=== PATIENT | male | born 1950 | race Caucasian/White ===

== ENCOUNTER 2017-09-26 21:56 | Emergency (ER) | payer MEDICARE ==
[~2017-09-26 21:56] MED LIST: ALPR0.255 PO; AMLO5TAB2 PO; ASPI-555 PO; ATOR20TA65 PO; CLON0.1T PO; CLOP75TA32 PO; FURO40TA7 PO; HYDR-4153 PO; LACT10SO PO; LOSA100T29 PO; METO200T49 PO; PANT40TA25 PO; POTA-81 PO
[2017-09-26 22:19] LABS: BASOPHILS % (AUTO) 0.8 % (0.0-5.0); EOSINOPHILS % (AUTO) 3.1 % (0.0-8.0); HEMATOCRIT 34.7 % (42-54); LYMPHOCYTES % (AUTO) 20.6 % (21.0-51.0); MEAN CORPUSCULAR HEMOGLOBIN 30.1 pg (27.0-33.0); MEAN CORPUSCULAR HGB CONC 34.7 g/dL (32.0-36.0); MEAN CORPUSCULAR VOLUME 86.5 fL (79-99); MONOCYTES % (AUTO) 10.9 % (3.0-13.0); NEUTROPHILS % (AUTO) 64.6 % (40.0-77.0); PLATELET COUNT (AUTO) 229 K/uL (130-400); RED CELL DISTRIBUTION WIDTH 13.2 % (11.0-15.5); WHITE BLOOD COUNT (AUTO) 9.6 K/uL (4.8-10.8)
[2017-09-26] MEDS ORDERED: ASPIRIN 325 MG TABLET ONE (22:30)
[2017-09-26 22:31] LABS: CREATININE 1.5 mg/dL (0.5-1.5); POTASSIUM 3.7 mmol/L (3.5-5.1)
[2017-09-26 22:36] LABS: ALBUMIN 3.7 g/dL (3.5-5.0); BILIRUBIN,TOTAL 0.4 mg/dL (0.2-1.0); TOTAL PROTEIN, SERUM 7.1 g/dL (6.0-8.3)
[2017-09-26] MEDS ORDERED: NITROGLYCERIN 1GM/1 INCH PACKET TD ONE (23:11)
[2017-09-26] MEDS ORDERED: CLONIDINE HCL 0.1 MG TABLET ONE (23:52)
[2017-09-26] MEDS ORDERED: FUROSEMIDE 10 MG/ML 4ML VIAL ONE (23:53)
== END 2017-09-27 00:32 | disposition home or self-care (01) ==
LOC: EDH 21:56
DX: R07.89 Other chest pain (principal); I11.0 Hypertensive heart disease with heart failure; I50.41 Acute combined systolic (congestive) and diastolic (congestive) heart failure; I25.10 Atherosclerotic heart disease of native coronary artery without angina pectoris; E78.5 Hyperlipidemia, unspecified; Z79.899 Other long term (current) drug therapy; Z87.891 Personal history of nicotine dependence
CPT/HCPCS: 36415; 71045; 80053; 82550; 82553; 83880; 84484 ×2; 85025; 93005 ×2; 96374; 99285; J1940

== ENCOUNTER 2018-01-26 03:01 | Inpatient (IN) | payer MEDICARE ==
[~2018-01-26] VITALS: Ht 182.9 cm; Wt 97.6 kg
[~2018-01-26 03:01] MED LIST changes: -AMLO5TAB2 PO; +AMLO5TAB7 PO; +LOSA100T20 PO; -LOSA100T29 PO
[2018-01-26] MEDS ORDERED: METOPROLOL TARTRATE 1 MG/ML 5ML VIAL IV ONE (03:05)
[2018-01-26] MEDS ORDERED: ASPIRIN 325 MG TABLET ONE (03:19)
[2018-01-26 03:25] LABS: POTASSIUM 3.9 mmol/L (3.5-5.1)
[2018-01-26 03:26] LABS: BASOPHILS % (AUTO) 0.9 % (0.0-5.0); EOSINOPHILS % (AUTO) 3.5 % (0.0-8.0); HEMATOCRIT 39.8 % (42-54); LYMPHOCYTES % (AUTO) 27.9 % (21.0-51.0); MEAN CORPUSCULAR HEMOGLOBIN 30.8 pg (27.0-33.0); MEAN CORPUSCULAR HGB CONC 34.6 g/dL (32.0-36.0); MEAN CORPUSCULAR VOLUME 89.1 fL (79-99); MONOCYTES % (AUTO) 9.8 % (3.0-13.0); NEUTROPHILS % (AUTO) 57.9 % (40.0-77.0); NUCLEATED RED BLOOD CELLS 0.1 % (0.0-0.19); PLATELET COUNT (AUTO) 204 K/uL (130-400); RED BLOOD CELL COUNT(AUTO) 4.47 MIL/uL (4.50-6.20); RED CELL DISTRIBUTION WIDTH 13.7 % (11.0-15.5); WHITE BLOOD COUNT (AUTO) 10.3 K/uL (4.8-10.8)
[2018-01-26 03:29] LABS: INR 0.95 (0.85-1.15); PARTIAL THROMBOPLASTIN TIME 27.5 SEC (26.3-35.5)
[2018-01-26 03:36] LABS: ALBUMIN 3.6 g/dL (3.5-5.0); BILIRUBIN,TOTAL 0.4 mg/dL (0.2-1.0); TOTAL PROTEIN, SERUM 7.2 g/dL (6.0-8.3)
[2018-01-26 04:28] VITALS: BP 128/76
[2018-01-26] MEDS ORDERED: OLME40TA18 PO (05:42)
[2018-01-26 07:24] VITALS: BP 150/88
[2018-01-26] MEDS: ENOXAPARIN SODIUM 100 MG/1 ML SQ SCH (08:14)
[2018-01-26] MEDS: PANTOPRAZOLE SODIUM 40 MG TABLET.DR PO SCH (08:14)
[2018-01-26] MEDS ORDERED: HYDR-4154 PO (08:42)
[2018-01-26] MEDS ORDERED: METOPROLOL TARTRATE 50 MG TAB PO SCH (09:00)
[2018-01-26] MEDS ORDERED: ASPIRIN 325MG EC TAB 325 MG TABLET.DR PO SCH (09:00)
[2018-01-26 09:42] LABS: CHOLESTEROL 184 mg/dL (<200); CREATINE KINASE, TOTAL 68 U/L (21-232); HDL CHOLESTEROL 34 mg/dL (29-71); LDL DIRECT 105 mg/dL (0-99); MYOGLOBIN 87 ng/mL (10-92); TRIGLYCERIDES 288 mg/dL (30-200)
[2018-01-26 11:19] VITALS: BP 149/75
[2018-01-26 16:10] VITALS: BP 165/86
[2018-01-26 19:57] VITALS: BP 184/90
[2018-01-26] MEDS ORDERED: CLONIDINE HCL 0.1 MG TABLET PO PRN (20:00)
[2018-01-26] MEDS: METOPROLOL TARTRATE 50 MG TAB PO SCH (20:05)
[2018-01-27] VITALS: BP 138/74
[2018-01-27 04:15] LABS: BASOPHILS % (AUTO) 0.8 % (0.0-5.0); EOSINOPHILS % (AUTO) 4.4 % (0.0-8.0); HEMATOCRIT 33.4 % (42-54); LYMPHOCYTES % (AUTO) 28.1 % (21.0-51.0); MEAN CORPUSCULAR HEMOGLOBIN 31.1 pg (27.0-33.0); MEAN CORPUSCULAR HGB CONC 34.9 g/dL (32.0-36.0); MEAN CORPUSCULAR VOLUME 89.2 fL (79-99); NEUTROPHILS % (AUTO) 55.7 % (40.0-77.0); PLATELET COUNT (AUTO) 183 K/uL (130-400); RED BLOOD CELL COUNT(AUTO) 3.74 MIL/uL (4.50-6.20); RED CELL DISTRIBUTION WIDTH 13.9 % (11.0-15.5)
[2018-01-27 04:25] VITALS: BP 137/70
[2018-01-27 04:40] LABS: ALBUMIN 2.9 g/dL (3.5-5.0); BILIRUBIN,TOTAL 0.3 mg/dL (0.2-1.0); POTASSIUM 4.3 mmol/L (3.5-5.1); TOTAL PROTEIN, SERUM 6.1 g/dL (6.0-8.3)
[2018-01-27] MEDS: PANTOPRAZOLE SODIUM 40 MG TABLET.DR PO SCH (07:18)
[2018-01-27] MEDS: METOPROLOL TARTRATE 50 MG TAB PO SCH (07:19)
[2018-01-27] MEDS: ENOXAPARIN SODIUM 100 MG/1 ML SQ SCH (07:19)
[2018-01-27] MEDS ORDERED: RIVA15TA PO (07:37)
[2018-01-27] MEDS ORDERED: FURO20TA4 PO (07:37)
[2018-01-27 07:44] VITALS: BP 177/97
[2018-01-27] MEDS ORDERED: AMLODIPINE BESYLATE 5 MG TAB PO SCH (09:00)
[2018-01-27] MEDS ORDERED: ASPIRIN 81MG TAB.CHEW PO SCH (09:00)
[2018-01-27] MEDS ORDERED: ASPIRIN 325MG EC TAB 325 MG TABLET.DR PO SCH (09:00)
== END 2018-01-27 10:50 | disposition home or self-care (01) | DRG 309 ==
LOC: EDH 03:01 → EDHIP 03:24 → 2AH 04:11
PROVIDERS: ADMIT Hospitalist; ATTEND Hospitalist
DX: I48.0 Paroxysmal atrial fibrillation (principal); E46 Unspecified protein-calorie malnutrition; N18.4 Chronic kidney disease, stage 4 (severe); I12.9 Hypertensive chronic kidney disease with stage 1 through stage 4 chronic kidney disease, or unspecified chronic kidney disease; E78.5 Hyperlipidemia, unspecified; E78.1 Pure hyperglyceridemia; I95.9 Hypotension, unspecified; I25.10 Atherosclerotic heart disease of native coronary artery without angina pectoris; I73.9 Peripheral vascular disease, unspecified; K21.9 Gastro-esophageal reflux disease without esophagitis; Z68.29 Body mass index [BMI] 29.0-29.9, adult; Z79.82 Long term (current) use of aspirin; Z79.899 Other long term (current) drug therapy; Z83.3 Family history of diabetes mellitus; Z82.49 Family history of ischemic heart disease and other diseases of the circulatory system; Z80.42 Family history of malignant neoplasm of prostate
CPT/HCPCS: 36415; 71045; 80053; 80061; 82550; 83874; 84484; 85025; 85610; 85730; 93005; 99291; J1650; J3490

== ENCOUNTER 2018-03-28 14:55 | Observation (INO) | payer MEDICARE ==
[~2018-03-28] VITALS: Ht 172.7 cm; Wt 98.9 kg
[~2018-03-28 14:55] MED LIST changes: -CLOP75TA32 PO; +FURO20TA4 PO; -FURO40TA7 PO; -HYDR-4153 PO; -LOSA100T20 PO; +RIVA15TA PO
[2018-03-28 15:47] LABS: BASOPHILS % (AUTO) 1.4 % (0.0-5.0); EOSINOPHILS % (AUTO) 3.3 % (0.0-8.0); HEMATOCRIT 39.9 % (42-54); LYMPHOCYTES % (AUTO) 18.4 % (21.0-51.0); MEAN CORPUSCULAR HEMOGLOBIN 30.2 pg (27.0-33.0); MEAN CORPUSCULAR HGB CONC 33.5 g/dL (32.0-36.0); MEAN CORPUSCULAR VOLUME 90.2 fL (79-99); MONOCYTES % (AUTO) 8.3 % (3.0-13.0); NEUTROPHILS % (AUTO) 68.6 % (40.0-77.0); PLATELET COUNT (AUTO) 223 K/uL (130-400); RED BLOOD CELL COUNT(AUTO) 4.42 MIL/uL (4.50-6.20); RED CELL DISTRIBUTION WIDTH 13.7 % (11.0-15.5); WHITE BLOOD COUNT (AUTO) 8.7 K/uL (4.8-10.8)
[2018-03-28 16:00] LABS: CREATININE 1.9 mg/dL (0.5-1.5); POTASSIUM 4.4 mmol/L (3.5-5.1)
[2018-03-28 16:02] LABS: ALBUMIN 3.1 g/dL (3.5-5.0); BILIRUBIN,TOTAL 0.5 mg/dL (0.2-1.0); INR 1.17 (0.85-1.15); PARTIAL THROMBOPLASTIN TIME 40.7 SEC (26.3-35.5); PROTHROMBIN TIME 12.2 SEC (9.6-11.6); TOTAL PROTEIN, SERUM 6.7 g/dL (6.0-8.3)
[2018-03-28 16:09] LABS: APPEARANCE,URINE Clear (CLEAR); BILIRUBIN,URINE Negative (NEGATIVE); COLOR,URINE Yellow (YELLOW); GLUCOSE, URINE (UA) Negative (NEGATIVE); KETONES,URINE Negative (NEGATIVE); LEUKOCYTE ESTERASE ,URINE Negative (NEGATIVE); NITRATE,URINE Negative (NEGATIVE); OCCULT BLOOD,URINE Negative (NEGATIVE); PH,URINE 5.5 (5.0-8.0); PROTEIN,URINE POS 2+ (NEGATIVE); UROBILINOGEN,URINE 0.2 mg/dL (0.2-1.0)
[2018-03-28 16:14] LABS: B-TYPE NATRIURETIC PEPTIDE 972 pg/mL (0-100)
[2018-03-28] MEDS ORDERED: NITROGLYCERIN 1GM/1 INCH PACKET TD ONE (16:42)
[2018-03-28] MEDS ORDERED: FUROSEMIDE 10 MG/ML 4ML VIAL ONE (16:42)
[2018-03-28 17:54] LABS: BACTERIA,URINE Rare /HPF (None Seen); RBC,URINE 0-1 /HPF (0-1); SQUAMOUS EPITHELIAL CELL,UR Rare /HPF (0-2); WBC,URINE 0-1 /HPF (0-1)
[2018-03-28] MEDS ORDERED: ACETAMINOPHEN 325 MG TAB PO PRN (18:45)
[2018-03-28] MEDS ORDERED: AZITHROMYCIN 500MG+NS 250ML 250 ML IV SCH (18:45)
[2018-03-28] MEDS ORDERED: CEFTRIAXONE SODIUM 1 GM IV SCH (18:45)
[2018-03-28] MEDS: NITROGLYCERIN 1GM/1 INCH PACKET TD SCH (18:45)
[2018-03-28] MEDS ORDERED: ALBUTEROL SULFATE 0.083% 2.5 MG/3 ML INH IH PRN (18:45)
[2018-03-28] MEDS ORDERED: CLONIDINE HCL 0.1 MG TABLET PO PRN (19:00)
[2018-03-28] MEDS ORDERED: LACTULOSE 20 GM/30 ML UDCUP PO PRN (19:30)
[2018-03-28] MEDS ORDERED: CEFTRIAXONE SODIUM 1 GM ONE (19:57)
[2018-03-28] MEDS ORDERED: METOPROLOL TARTRATE 25 MG TAB ONE (19:57)
[2018-03-28] MEDS ORDERED: CLONIDINE HCL 0.1 MG TABLET ONE (19:57)
[2018-03-28] MEDS: FUROSEMIDE 10 MG/ML 4ML VIAL IVP SCH (21:00)
[2018-03-28] MEDS ORDERED: METOPROLOL TARTRATE 25 MG TAB PO SCH (21:00)
[2018-03-28 21:26] VITALS: BP 166/75
[2018-03-28] MEDS: ALPRAZOLAM 0.25 MG TABLET PO SCH (21:53)
[2018-03-28] MEDS: FAMOTIDINE/PF 20 MG/2 ML VIAL IV SCH (21:53)
[2018-03-29] VITALS: BP_SYST 132; BP_SYST 88; BP_DIAS 37; BP_DIAS 95
[2018-03-29 04:00] VITALS: BP 151/73
[2018-03-29] MEDS: NITROGLYCERIN 1GM/1 INCH PACKET TD SCH ×2 (05:41→14:36)
[2018-03-29 07:00] VITALS: BP 162/70
[2018-03-29] MEDS: ALPRAZOLAM 0.25 MG TABLET PO SCH ×2 (08:40→14:35)
[2018-03-29] MEDS: FAMOTIDINE/PF 20 MG/2 ML VIAL IV SCH (08:41)
[2018-03-29] MEDS: FUROSEMIDE 10 MG/ML 4ML VIAL IVP SCH (08:42)
[2018-03-29] MEDS ORDERED: RIVAROXABAN 15 MG TABLET PO SCH (09:00)
[2018-03-29] MEDS ORDERED: ENOXAPARIN SODIUM 30 MG/0.3 ML SQ SCH (09:00)
[2018-03-29] MEDS ORDERED: ASPIRIN 81MG TAB.CHEW PO SCH (09:00)
[2018-03-29] MEDS ORDERED: METOPROLOL TARTRATE 50 MG TAB PO SCH (09:00)
[2018-03-29] MEDS ORDERED: ATORVASTATIN CALCIUM 20 MG TABLET PO SCH (09:00)
[2018-03-29] MEDS ORDERED: POTASSIUM CHLORIDE 20 MEQ ERTAB PO SCH (09:00)
[2018-03-29 11:00] VITALS: BP 119/62
[2018-03-29 12:15] LABS: HEMATOCRIT 39.9 % (42-54); MEAN CORPUSCULAR HEMOGLOBIN 30.7 pg (27.0-33.0); MEAN CORPUSCULAR HGB CONC 33.9 g/dL (32.0-36.0); MEAN CORPUSCULAR VOLUME 90.6 fL (79-99); PLATELET COUNT (AUTO) 237 K/uL (130-400); RED BLOOD CELL COUNT(AUTO) 4.41 MIL/uL (4.50-6.20); RED CELL DISTRIBUTION WIDTH 13.2 % (11.0-15.5); WHITE BLOOD COUNT (AUTO) 7.1 K/uL (4.8-10.8)
[2018-03-29 12:37] LABS: ALBUMIN 2.9 g/dL (3.5-5.0); BILIRUBIN,TOTAL 0.4 mg/dL (0.2-1.0); CREATININE 2.2 mg/dL (0.5-1.5); POTASSIUM 4.2 mmol/L (3.5-5.1); TOTAL PROTEIN, SERUM 6.6 g/dL (6.0-8.3)
== END 2018-03-29 17:36 | disposition home or self-care (01) ==
LOC: EDH 14:55 → EDHIP 18:25 → 3CH 20:44
PROVIDERS: ADMIT Hospitalist; ATTEND Hospitalist
DX: I11.0 Hypertensive heart disease with heart failure (principal); R91.8 Other nonspecific abnormal finding of lung field; M79.671 Pain in right foot; E78.5 Hyperlipidemia, unspecified; I25.10 Atherosclerotic heart disease of native coronary artery without angina pectoris; I65.29 Occlusion and stenosis of unspecified carotid artery; I48.0 Paroxysmal atrial fibrillation; F41.9 Anxiety disorder, unspecified; I50.33 Acute on chronic diastolic (congestive) heart failure; I73.9 Peripheral vascular disease, unspecified; K21.9 Gastro-esophageal reflux disease without esophagitis; N28.9 Disorder of kidney and ureter, unspecified; Z16.24 Resistance to multiple antibiotics; Z80.42 Family history of malignant neoplasm of prostate; Z82.49 Family history of ischemic heart disease and other diseases of the circulatory system; Z83.3 Family history of diabetes mellitus; Z87.891 Personal history of nicotine dependence; Z95.5 Presence of coronary angioplasty implant and graft; Z79.01 Long term (current) use of anticoagulants
CPT/HCPCS: 36415 ×2; 71045; 80053 ×2; 81001; 82550; 83880 ×2; 84484 ×2; 85025; 85027; 85610; 85730; 93005; 93970; 94664; 96365; 96375 ×2; 96376; 99284; G0378 ×23; J0456; J0696; J1940 ×2; J3490 ×2

== ENCOUNTER 2018-07-24 23:36 | Emergency (ER) | payer MEDICARE ==
[~2018-07-24 23:36] MED LIST changes: -AMLO5TAB7 PO; +AMLO5TAB9 PO
[2018-07-25] MEDS ORDERED: SODIUM CHLORIDE 0.9% 100 ML IV ONE (00:19)
[2018-07-25] MEDS ORDERED: FUROSEMIDE 10 MG/ML 4ML VIAL ONE (00:19)
[2018-07-25 00:51] LABS: BASOPHILS % (AUTO) 0.8 % (0.0-5.0); EOSINOPHILS % (AUTO) 4.5 % (0.0-8.0); HEMATOCRIT 37.1 % (42-54); LYMPHOCYTES % (AUTO) 19.5 % (21.0-51.0); MEAN CORPUSCULAR HEMOGLOBIN 29.5 pg (27.0-33.0); MEAN CORPUSCULAR HGB CONC 33.5 g/dL (32.0-36.0); MEAN CORPUSCULAR VOLUME 87.9 fL (79-99); NEUTROPHILS % (AUTO) 67.2 % (40.0-77.0); PLATELET COUNT (AUTO) 226 K/uL (130-400); RED BLOOD CELL COUNT(AUTO) 4.22 MIL/uL (4.50-6.20); RED CELL DISTRIBUTION WIDTH 14.7 % (11.0-15.5); WHITE BLOOD COUNT (AUTO) 9.8 K/uL (4.8-10.8)
[2018-07-25 00:54] LABS: APPEARANCE,URINE Clear (CLEAR); BILIRUBIN,URINE Negative (NEGATIVE); COLOR,URINE Yellow (YELLOW); GLUCOSE, URINE (UA) Negative (NEGATIVE); KETONES,URINE Negative (NEGATIVE); LEUKOCYTE ESTERASE ,URINE Negative (NEGATIVE); NITRATE,URINE Negative (NEGATIVE); OCCULT BLOOD,URINE Negative (NEGATIVE); PH,URINE 6.5 (5.0-8.0); PROTEIN,URINE POS 2+ mg/dL (NEGATIVE); UROBILINOGEN,URINE 0.2 mg/dL (0.2-1.0)
[2018-07-25 01:04] LABS: POTASSIUM 4.2 mmol/L (3.5-5.1)
[2018-07-25 01:07] LABS: INR 1.07 (0.85-1.15); PROTHROMBIN TIME 11.2 SEC (9.6-11.6)
[2018-07-25 01:09] LABS: ALBUMIN 3.4 g/dL (3.5-5.0); B-TYPE NATRIURETIC PEPTIDE 460 pg/mL (0-100); BILIRUBIN,TOTAL 0.5 mg/dL (0.2-1.0)
== END 2018-07-25 03:44 | disposition home or self-care (01) ==
LOC: EDH 23:36
DX: R60.0 Localized edema (principal); I13.0 Hypertensive heart and chronic kidney disease with heart failure and stage 1 through stage 4 chronic kidney disease, or unspecified chronic kidney disease; I50.9 Heart failure, unspecified; N18.9 Chronic kidney disease, unspecified; I25.10 Atherosclerotic heart disease of native coronary artery without angina pectoris; Z98.890 Other specified postprocedural states; Z87.891 Personal history of nicotine dependence
CPT/HCPCS: 36415; 71045; 80053; 81003; 82550; 83880; 84484; 85025; 85610; 85730; 93005; 96374; 99284; J1940

== ENCOUNTER 2018-11-23 06:05 | Day surgery (SDC) | payer MEDICARE ==
[2018-11-23 06:22] VITALS: BP 198/111
[2018-11-23] MEDS ORDERED: SODIUM CHLORIDE 0.9% 1000ML 1,000 ML IV ONE (06:55)
[2018-11-23] MEDS ORDERED: IOHEXOL-350 75 ML VIAL IV ONE (10:24)
[2018-11-23 11:02] VITALS: BP 159/73
[2018-12-02] MEDS ORDERED: HYDR100T27 PO (08:36)
[2018-12-02] MEDS ORDERED: OLME40TA18 PO (08:36)
[2018-12-02] MEDS ORDERED: CLOP75TA32 PO (08:36)
== END 2018-11-23 11:08 | disposition home or self-care (01) ==
LOC: DAH 06:05 → EDSTATUS 08:00 → DAH 11:08
PROVIDERS: ATTEND Internal Medicine Cardiovascular Disease
DX: I65.23 Occlusion and stenosis of bilateral carotid arteries (principal); I25.10 Atherosclerotic heart disease of native coronary artery without angina pectoris; I13.0 Hypertensive heart and chronic kidney disease with heart failure and stage 1 through stage 4 chronic kidney disease, or unspecified chronic kidney disease; N18.3 Chronic kidney disease, stage 3 (moderate); I50.32 Chronic diastolic (congestive) heart failure; E78.5 Hyperlipidemia, unspecified; I48.0 Paroxysmal atrial fibrillation; K21.9 Gastro-esophageal reflux disease without esophagitis; Z87.891 Personal history of nicotine dependence; Z79.01 Long term (current) use of anticoagulants; Z79.899 Other long term (current) drug therapy; Z98.61 Coronary angioplasty status
CPT/HCPCS: 70496; 70498; 96365; 96366; A4606; J7030; Q9967

== ENCOUNTER 2019-02-20 20:19 | Emergency (ER) | payer MEDICARE ==
[~2019-02-20 20:19] MED LIST changes: -AMLO5TAB9 PO; +CLOP75TA32 PO; +HYDR100T27 PO; -POTA-81 PO
[2019-02-20] MEDS ORDERED: ASPIRIN 81MG TAB.CHEW ONE (20:39)
[2019-02-20] MEDS ORDERED: NITROGLYCERIN 1GM/1 INCH PACKET TD ONE (20:39)
[2019-02-20 21:13] LABS: BASOPHILS % (AUTO) 0.7 % (0.0-5.0); EOSINOPHILS % (AUTO) 3.6 % (0.0-8.0); HEMATOCRIT 34.3 % (42-54); LYMPHOCYTES % (AUTO) 14.1 % (21.0-51.0); MEAN CORPUSCULAR HEMOGLOBIN 29.8 pg (27.0-33.0); MEAN CORPUSCULAR HGB CONC 33.8 g/dL (32.0-36.0); MEAN CORPUSCULAR VOLUME 88.3 fL (79-99); MONOCYTES % (AUTO) 5.7 % (3.0-13.0); NEUTROPHILS % (AUTO) 75.9 % (40.0-77.0); NUCLEATED RED BLOOD CELLS 0.1 % (0.0-0.19); PLATELET COUNT (AUTO) 186 K/uL (130-400); RED BLOOD CELL COUNT(AUTO) 3.89 MIL/uL (4.50-6.20); RED CELL DISTRIBUTION WIDTH 13.5 % (11.0-15.5); WHITE BLOOD COUNT (AUTO) 10.7 K/uL (4.8-10.8)
[2019-02-20 21:43] LABS: CREATININE 2.2 mg/dL (0.5-1.5); POTASSIUM 4.8 mmol/L (3.5-5.1)
[2019-02-20 21:49] LABS: INR 1.18 (0.85-1.15); PARTIAL THROMBOPLASTIN TIME 31.2 SEC (26.3-35.5)
[2019-02-20 21:50] LABS: ALBUMIN 3.2 g/dL (3.5-5.0); BILIRUBIN,TOTAL 0.3 mg/dL (0.2-1.0); TOTAL PROTEIN, SERUM 6.5 g/dL (6.0-8.3)
== END 2019-02-20 23:18 | disposition home or self-care (01) ==
LOC: EDH 20:19
DX: I12.9 Hypertensive chronic kidney disease with stage 1 through stage 4 chronic kidney disease, or unspecified chronic kidney disease (principal); I11.0 Hypertensive heart disease with heart failure; I50.9 Heart failure, unspecified; N18.9 Chronic kidney disease, unspecified; I25.10 Atherosclerotic heart disease of native coronary artery without angina pectoris; E78.5 Hyperlipidemia, unspecified; Z88.8 Allergy status to other drugs, medicaments and biological substances
CPT/HCPCS: 36415; 71045; 80053; 82550; 83880; 84484; 85025; 85610; 85730; 93005

== ENCOUNTER 2019-07-24 22:02 | Emergency (ER) | payer MEDICARE ==
[2019-07-24] MEDS ORDERED: ASPIRIN 325 MG TABLET ONE (22:22)
[2019-07-24] MEDS ORDERED: NITROGLYCERIN 1GM/1 INCH PACKET TD ONE (22:22)
[2019-07-24 23:43] LABS: BASOPHILS % (AUTO) 0.4 % (0.0-5.0); EOSINOPHILS % (AUTO) 4.7 % (0.0-8.0); HEMATOCRIT 39.5 % (42-54); LYMPHOCYTES % (AUTO) 24.5 % (21.0-51.0); MEAN CORPUSCULAR HEMOGLOBIN 28.8 pg (27.0-33.0); MEAN CORPUSCULAR HGB CONC 32.9 g/dL (32.0-36.0); MEAN CORPUSCULAR VOLUME 87.4 fL (79-99); MONOCYTES % (AUTO) 9.1 % (3.0-13.0); NEUTROPHILS % (AUTO) 60.6 % (40.0-77.0); PLATELET COUNT (AUTO) 209 K/uL (130-400); RED BLOOD CELL COUNT(AUTO) 4.52 MIL/uL (4.50-6.20); RED CELL DISTRIBUTION WIDTH 12.8 % (11.0-15.5); WHITE BLOOD COUNT (AUTO) 10.8 K/uL (4.8-10.8)
[2019-07-24 23:47] LABS: CREATININE 2.5 mg/dL (0.5-1.5); POTASSIUM 5.2 mmol/L (3.5-5.1)
[2019-07-24 23:50] LABS: INR 1.04 (0.85-1.15); PARTIAL THROMBOPLASTIN TIME 32.6 SEC (26.3-35.5); PROTHROMBIN TIME 11.2 SEC (9.6-11.6)
[2019-07-24 23:54] LABS: ALBUMIN 3.8 g/dL (3.5-5.0); BILIRUBIN,TOTAL 0.3 mg/dL (0.2-1.0); TOTAL PROTEIN, SERUM 7.5 g/dL (6.0-8.3)
[2019-07-25 00:07] LABS: B-TYPE NATRIURETIC PEPTIDE 245 pg/mL (0-100)
[2019-07-25] MEDS ORDERED: CALCIUM GLUCONATE 1 GM/10 ML VIAL IV ONE (00:34)
[2019-07-25] MEDS ORDERED: SODIUM POLYSTYRENE SULFONATE 15 GM/60 ML ML ONE (00:34)
[2019-07-25] MEDS ORDERED: FUROSEMIDE 10 MG/ML 4ML VIAL ONE (00:34)
== END 2019-07-25 02:32 | disposition home or self-care (01) ==
LOC: EDH 22:02
DX: I16.0 Hypertensive urgency (principal); I13.0 Hypertensive heart and chronic kidney disease with heart failure and stage 1 through stage 4 chronic kidney disease, or unspecified chronic kidney disease; N18.9 Chronic kidney disease, unspecified; I50.9 Heart failure, unspecified; I25.10 Atherosclerotic heart disease of native coronary artery without angina pectoris; I48.91 Unspecified atrial fibrillation; Z88.8 Allergy status to other drugs, medicaments and biological substances; Z79.899 Other long term (current) drug therapy
CPT/HCPCS: 36415 ×2; 71045; 80053; 82270; 82550; 83880; 84132 ×2; 84484 ×2; 85025; 85610; 85730; 93005 ×2; 96374; 96375; 99285; J0610; J1940

== ENCOUNTER → 2019-10-13 | Outpatient (CLI) | payer MEDICARE ==
[~2019-10-13] MED LIST changes: -ASPI-555 PO; +ASPI-556 PO; +BUSP7.5T7 PO; +ESCI10TA54 PO; +MINO2.5T3 PO; +OLME40TA18 PO; -PANT40TA25 PO; +PANT40TA54 PO
== END | disposition home or self-care (01) ==
LOC: SHCH 08:10
PROVIDERS: ATTEND Internal Medicine Cardiovascular Disease
DX: I65.21 Occlusion and stenosis of right carotid artery (principal)
CPT/HCPCS: 93880

== ENCOUNTER → 2019-10-18 | Outpatient (CLI) | payer MEDICARE | END | disposition home or self-care (01) | LOC: SHCH 07:46 | PROVIDERS: ATTEND Internal Medicine Cardiovascular Disease | DX: I10 Essential (primary) hypertension (principal) ==

== ENCOUNTER 2020-03-24 01:48 | Observation (INO) | payer MEDICARE ==
[2020-03-24 02:02] LABS: BASOPHILS % (AUTO) 0.4 % (0.0-5.0); HEMATOCRIT 36.3 % (42-54); LYMPHOCYTES % (AUTO) 14.9 % (21.0-51.0); MEAN CORPUSCULAR HEMOGLOBIN 30.3 pg (27.0-33.0); MEAN CORPUSCULAR HGB CONC 34.4 g/dL (32.0-36.0); MEAN CORPUSCULAR VOLUME 88.1 fL (79-99); MONOCYTES % (AUTO) 7.9 % (3.0-13.0); NEUTROPHILS % (AUTO) 70.4 % (40.0-77.0); PLATELET COUNT (AUTO) 203 K/uL (130-400); RED BLOOD CELL COUNT(AUTO) 4.12 MIL/uL (4.50-6.20); RED CELL DISTRIBUTION WIDTH 12.4 % (11.0-15.5); WHITE BLOOD COUNT (AUTO) 11.2 K/uL (4.8-10.8)
[2020-03-24 02:14] LABS: CREATININE 2.4 mg/dL (0.5-1.5); POTASSIUM 4.6 mmol/L (3.5-5.1)
[2020-03-24 02:16] LABS: INR 1.02 (0.85-1.15); PARTIAL THROMBOPLASTIN TIME 30.3 SEC (26.3-35.5)
[2020-03-24] MEDS ORDERED: ASPIRIN 325 MG TABLET ONE (02:17)
[2020-03-24 02:18] LABS: ALBUMIN 3.7 g/dL (3.5-5.0); BILIRUBIN,TOTAL 0.4 mg/dL (0.2-1.0); TOTAL PROTEIN, SERUM 6.9 g/dL (6.0-8.3)
[2020-03-24] MEDS ORDERED: NITROGLYCERIN 1GM/1 INCH PACKET TD ONE (02:18)
[2020-03-24] MEDS ORDERED: ACETAMINOPHEN EXTRA STRENGTH 500 MG TABLET ONE (03:34)
[2020-03-24] MEDS ORDERED: NITROGLYCERIN 0.4 MG SL TAB SL PRN (03:45)
[2020-03-24] MEDS ORDERED: HYDRALAZINE HCL 20 MG/ML VIAL IV PRN (03:45)
[2020-03-24] MEDS ORDERED: ACETAMINOPHEN 325 MG TAB PO PRN ×2 (03:45)
[2020-03-24] MEDS ORDERED: MORPHINE SULFATE 2 MG/ML 1ML SYG IV PRN (03:45)
[2020-03-24] MEDS ORDERED: ONDANSETRON HCL 4 MG/2 ML VIAL IV PRN (03:45)
[2020-03-24] MEDS ORDERED: NITROGLYCERIN 1GM/1 INCH PACKET TD SCH (03:45)
[2020-03-24] MEDS ORDERED: LACTULOSE 20 GM/30 ML UDCUP PO PRN (03:45)
[2020-03-24] MEDS ORDERED: METOPROLOL TARTRATE 1 MG/ML 5ML VIAL IV ONE (05:44)
[2020-03-24] MEDS ORDERED: METOPROLOL TARTRATE 1 MG/ML 5ML VIAL IV SCH (05:45)
[2020-03-24] MEDS ORDERED: METOPROLOL TARTRATE 25 MG TAB ONE (07:57)
[2020-03-24] MEDS ORDERED: FAMOTIDINE 20MG TAB 20 MG TAB ONE (07:57)
[2020-03-24] MEDS ORDERED: ASPIRIN 81MG TAB.CHEW ONE (07:57)
[2020-03-24] MEDS ORDERED: ASPIRIN 81MG TAB.CHEW PO SCH (09:00)
[2020-03-24] MEDS ORDERED: FAMOTIDINE 20MG TAB 20 MG TAB PO SCH (09:00)
[2020-03-24] MEDS ORDERED: METOPROLOL TARTRATE 25 MG TAB PO SCH (09:00)
[2020-03-24] MEDS ORDERED: ATORVASTATIN CALCIUM 40 MG TABLET PO SCH (21:00)
== END 2020-03-24 10:29 | disposition left against medical advice (07) ==
LOC: EDH 01:48 → EDHIP 03:35
PROVIDERS: ADMIT Internal Medicine; ATTEND Internal Medicine
DX: R07.89 Other chest pain (principal); I13.0 Hypertensive heart and chronic kidney disease with heart failure and stage 1 through stage 4 chronic kidney disease, or unspecified chronic kidney disease; I50.33 Acute on chronic diastolic (congestive) heart failure; N18.9 Chronic kidney disease, unspecified; I48.91 Unspecified atrial fibrillation; I25.10 Atherosclerotic heart disease of native coronary artery without angina pectoris; E78.5 Hyperlipidemia, unspecified; Z87.891 Personal history of nicotine dependence; Z95.818 Presence of other cardiac implants and grafts; Z90.79 Acquired absence of other genital organ(s); Z79.01 Long term (current) use of anticoagulants; Z79.82 Long term (current) use of aspirin; Z79.899 Other long term (current) drug therapy; Z88.8 Allergy status to other drugs, medicaments and biological substances
CPT/HCPCS: 36415; 71045; 80053; 82550; 83690; 84484 ×2; 85025; 85610; 85730; 93005; 99285; G0378 ×7; J3490

== ENCOUNTER 2020-04-19 06:51 | Day surgery (SDC) | payer MEDICARE ==
[2020-04-17 09:40] LABS: BASOPHILS % (AUTO) 0.3 % (0.0-5.0); EOSINOPHILS % (AUTO) 3.5 % (0.0-8.0); HEMATOCRIT 35.1 % (42-54); LYMPHOCYTES % (AUTO) 16.1 % (21.0-51.0); MEAN CORPUSCULAR HEMOGLOBIN 29.6 pg (27.0-33.0); MEAN CORPUSCULAR VOLUME 89.5 fL (79-99); MONOCYTES % (AUTO) 9.8 % (3.0-13.0); NEUTROPHILS % (AUTO) 69.8 % (40.0-77.0); PLATELET COUNT (AUTO) 194 K/uL (130-400); RED BLOOD CELL COUNT(AUTO) 3.92 MIL/uL (4.50-6.20); RED CELL DISTRIBUTION WIDTH 12.3 % (11.0-15.5); WHITE BLOOD COUNT (AUTO) 8.9 K/uL (4.8-10.8)
[2020-04-17 09:42] LABS: APPEARANCE,URINE Clear (CLEAR); BILIRUBIN,URINE Negative (NEGATIVE); COLOR,URINE Yellow (YELLOW); GLUCOSE, URINE (UA) Negative (NEGATIVE); KETONES,URINE Negative (NEGATIVE); LEUKOCYTE ESTERASE ,URINE Negative (NEGATIVE); NITRATE,URINE Negative (NEGATIVE); OCCULT BLOOD,URINE Negative (NEGATIVE); PROTEIN,URINE POS 2+ mg/dL (NEGATIVE); UROBILINOGEN,URINE 0.2 mg/dL (0.2-1.0)
[2020-04-17 09:55] LABS: CREATININE 2.2 mg/dL (0.5-1.5); POTASSIUM 5.2 mmol/L (3.5-5.1)
[2020-04-17 09:58] LABS: BACTERIA,URINE Rare /HPF (None Seen); RBC,URINE 0-1 /HPF (0-1); SQUAMOUS EPITHELIAL CELL,UR Rare /HPF (0-2); WBC,URINE 0-1 /HPF (0-1)
[2020-04-17 10:01] LABS: INR 1.27 (0.85-1.15); PARTIAL THROMBOPLASTIN TIME 37.8 SEC (26.3-35.5); PROTHROMBIN TIME 13.6 SEC (9.6-11.6)
--- NOTE | 2020-04-18 09:11 | NUR ---
LABS ABNORMAL LABS AND CHEST XRAY REPORTED TO [facility]AT[facility], FURTHER ORDERS GIVEN AND WILL BE CARRIED OUT. OK TO PROCEED WITH PLANNED PROCEDURE
[2020-04-18 13:08] VITALS: BP 187/83
--- NOTE | 2020-04-18 14:00 | NUR ---
Made aware Spoke to GAUDENCIO Harrison and made aware of pt taking Xarelto this AM. Ok to proceed
[~2020-04-19] VITALS: Ht 182.9 cm; Wt 98.4 kg
[2020-04-19] VITALS (9 sets, daily range): BP systolic 140–181; BP diastolic 64–78
[~2020-04-19 06:51] MED LIST changes: -ALPR0.255 PO; -ASPI-556 PO; +FERR325T22 PO; +HYDR-4154 PO; -HYDR100T27 PO; -LACT10SO PO; -MINO2.5T3 PO; -OLME40TA18 PO; +SODIUM CHLORIDE 0.9% 1000ML 1,000 ML IV SCH
[2020-04-19] MEDS ORDERED: DIAZEPAM 5 MG TABLET PO SCH (07:59)
[2020-04-19] MEDS ORDERED: SODIUM CHLORIDE 0.9% 1000ML 1,000 ML IV SCH ×2 (08:00→13:00)
--- NOTE | 2020-04-19 11:00 | NUR ---
DR. ROGELIO NICOLAS NOTIFIED OF [place] [facility] [place] COLLECTED ON 04/17/20 FAXED TO OFFICE.
[2020-04-19] MEDS ORDERED: SODIUM BICARB 50MEQ 50ML VIAL 50 ML ONE (11:27)
[2020-04-19] MEDS ORDERED: HEPARIN SODIUM 1000UNIT/ML 10ML VIAL ONE (11:27)
[2020-04-19] MEDS ORDERED: NITROGLYCERIN 2 MG/VIAL VIAL IV ONE (11:27)
[2020-04-19] MEDS ORDERED: NICARDIPINE HCL 25 MG/10 ML ML IV ONE (11:27)
[2020-04-19] MEDS ORDERED: IOHEXOL 350 MG/ML 100ML INFUS..BTL IV ONE (11:27)
[2020-04-19] MEDS ORDERED: MEPERIDINE-PF 25 MG/ML SYG ONE (11:28)
[2020-04-19] MEDS ORDERED: LIDOCAINE HCL 2% 20ML ONE (11:28)
[2020-04-19] MEDS ORDERED: MIDAZOLAM HCL 1 MG/ML 2ML VIAL ONE (11:28)
== END 2020-04-19 16:25 | disposition home or self-care (01) ==
LOC: DAH 06:51
PROVIDERS: ATTEND Internal Medicine Cardiovascular Disease
DX: I25.119 Atherosclerotic heart disease of native coronary artery with unspecified angina pectoris (principal); I12.0 Hypertensive chronic kidney disease with stage 5 chronic kidney disease or end stage renal disease; N18.5 Chronic kidney disease, stage 5; E78.5 Hyperlipidemia, unspecified; K21.9 Gastro-esophageal reflux disease without esophagitis; I48.0 Paroxysmal atrial fibrillation; I87.2 Venous insufficiency (chronic) (peripheral); Z79.01 Long term (current) use of anticoagulants; Z79.02 Long term (current) use of antithrombotics/antiplatelets; Z87.891 Personal history of nicotine dependence; Z82.49 Family history of ischemic heart disease and other diseases of the circulatory system; Z98.890 Other specified postprocedural states; Z88.8 Allergy status to other drugs, medicaments and biological substances; Z79.899 Other long term (current) drug therapy
CPT/HCPCS: 36415; 71045; 80048; 81001; 85025; 85610; 85730; 93005; 93458; C1760; C1894; J1644; J2175; J2250; J3490 ×3; Q9965; Q9967; 99156; 99157

== ENCOUNTER → 2020-04-20 | Outpatient (CLI) | payer MEDICARE ==
[~2020-04-20] MED LIST changes: -SODIUM CHLORIDE 0.9% 1000ML 1,000 ML IV SCH
[2020-04-20 11:01] LABS: CREATININE 2.2 mg/dL (0.5-1.5); POTASSIUM 5.2 mmol/L (3.5-5.1)
== END | disposition home or self-care (01) ==
LOC: LAB 09:57
PROVIDERS: ATTEND Internal Medicine Cardiovascular Disease
DX: I25.10 Atherosclerotic heart disease of native coronary artery without angina pectoris (principal)
CPT/HCPCS: 36415; 80048

== ENCOUNTER 2020-07-31 06:02 | Day surgery (SDC) | payer MEDICARE ==
[2020-07-31] VITALS (10 sets, daily range): BP systolic 61–164; BP diastolic 29–110
[~2020-07-31] VITALS: Ht 152.4 cm; Wt 93.0 kg
[~2020-07-31 06:02] MED LIST changes: +ESCI-8 PO; -ESCI10TA54 PO
[2020-07-31] MEDS ORDERED: PROPOFOL 10 MG/ML 20ML VIAL IV ONE (07:46)
[2020-07-31] MEDS ORDERED: LIDOCAINE HCL 1% 20 ML VIAL ONE (07:46)
[2020-07-31] MEDS ORDERED: SODIUM CHLORIDE 0.9% 1000ML 1,000 ML IV ONE (07:48)
== END 2020-07-31 08:55 | disposition home or self-care (01) ==
LOC: ENDO 06:02 → DAH 06:02 → ENDO 08:55
PROVIDERS: ATTEND Internal Medicine Gastroenterology
DX: K92.1 Melena (principal); Z20.822 Contact with and (suspected) exposure to COVID-19; K44.9 Diaphragmatic hernia without obstruction or gangrene; K21.9 Gastro-esophageal reflux disease without esophagitis; I12.9 Hypertensive chronic kidney disease with stage 1 through stage 4 chronic kidney disease, or unspecified chronic kidney disease; N18.9 Chronic kidney disease, unspecified; I73.9 Peripheral vascular disease, unspecified; I25.10 Atherosclerotic heart disease of native coronary artery without angina pectoris; E78.5 Hyperlipidemia, unspecified; E66.9 Obesity, unspecified; M10.9 Gout, unspecified; F41.9 Anxiety disorder, unspecified; Z86.010 Personal history of colon polyps; Z68.30 Body mass index [BMI] 30.0-30.9, adult; Z79.01 Long term (current) use of anticoagulants; Z79.899 Other long term (current) drug therapy; Z98.890 Other specified postprocedural states
CPT/HCPCS: 43235; A4215 ×2; A4221; A4222; A4223; A4606; A4620; A4657; A4663; C9803; J2704; J7030; U0003

== ENCOUNTER → 2020-09-29 | Outpatient (CLI) | payer MEDICARE ==
[~2020-09-29] MED LIST changes: -BUSP7.5T7 PO; -FERR325T22 PO
== END | disposition home or self-care (01) ==
LOC: RAH 07:35
PROVIDERS: ATTEND Internal Medicine
DX: R10.13 Epigastric pain (principal); K57.30 Diverticulosis of large intestine without perforation or abscess without bleeding; N26.1 Atrophy of kidney (terminal)
CPT/HCPCS: 74176

== ENCOUNTER → 2020-11-02 | Outpatient (CLI) | payer MEDICARE | END | disposition home or self-care (01) | LOC: SHCH 14:45 | PROVIDERS: ATTEND Internal Medicine Cardiovascular Disease | DX: I48.0 Paroxysmal atrial fibrillation (principal); I10 Essential (primary) hypertension; R60.9 Edema, unspecified; R07.9 Chest pain, unspecified; R09.89 Other specified symptoms and signs involving the circulatory and respiratory systems | CPT/HCPCS: 93880 ==

== ENCOUNTER 2021-02-10 13:46 | Inpatient (IN) | payer MEDICARE ==
[~2021-02-10] VITALS: Ht 182.9 cm; Wt 96.7 kg
[2021-02-10 14:47] LABS: BASOPHILS % (AUTO) 0.6 % (0.0-5.0); EOSINOPHILS % (AUTO) 4.6 % (0.0-8.0); HEMATOCRIT 36.9 % (42-54); LYMPHOCYTES % (AUTO) 18.5 % (21.0-51.0); MEAN CORPUSCULAR HEMOGLOBIN 26.9 pg (27.0-33.0); MEAN CORPUSCULAR VOLUME 84.1 fL (79-99); MONOCYTES % (AUTO) 10.8 % (3.0-13.0); NEUTROPHILS % (AUTO) 65.1 % (40.0-77.0); PLATELET COUNT (AUTO) 172 K/uL (130-400); RED BLOOD CELL COUNT(AUTO) 4.39 MIL/uL (4.50-6.20); RED CELL DISTRIBUTION WIDTH 16.7 % (11.0-15.5)
[2021-02-10 15:01] LABS: CREATININE 2.7 mg/dL (0.5-1.5); INR 1.24 (0.85-1.15); POTASSIUM 5.6 mmol/L (3.5-5.1); PROTHROMBIN TIME 13.3 SEC (9.6-11.6)
[2021-02-10 15:02] LABS: PARTIAL THROMBOPLASTIN TIME 36.5 SEC (26.3-35.5)
[2021-02-10 15:09] LABS: ALBUMIN 3.3 g/dL (3.5-5.0); BILIRUBIN,TOTAL 0.2 mg/dL (0.2-1.0); MAGNESIUM 1.9 mg/dL (1.80-2.40); TOTAL PROTEIN, SERUM 6.3 g/dL (6.0-8.3)
[2021-02-10 15:13] LABS: B-TYPE NATRIURETIC PEPTIDE 300 pg/mL (0-100)
[2021-02-10 17:41] LABS: APPEARANCE,URINE Clear (CLEAR); BILIRUBIN,URINE Negative (NEGATIVE); COLOR,URINE Yellow (YELLOW); GLUCOSE, URINE (UA) Negative (NEGATIVE); KETONES,URINE Negative (NEGATIVE); LEUKOCYTE ESTERASE ,URINE Negative (NEGATIVE); NITRATE,URINE Negative (NEGATIVE); OCCULT BLOOD,URINE Negative (NEGATIVE); PH,URINE 5.5 (5.0-8.0); PROTEIN,URINE 300 mg/dL (NEGATIVE); UROBILINOGEN,URINE 0.2 mg/dL (0.2-1.0)
[2021-02-10 17:53] LABS: BACTERIA,URINE Rare /HPF (None Seen); RBC,URINE 0-1 /HPF (0-1); SQUAMOUS EPITHELIAL CELL,UR Rare /HPF (0-2); WBC,URINE 0-1 /HPF (0-1)
[2021-02-10] MEDS ORDERED: HYDRALAZINE 20MG/ML VIAL ONE (18:14)
[2021-02-10] MEDS ORDERED: DILTIAZEM 25MG INJ IVP SCH (19:00)
[2021-02-10] MEDS ORDERED: HYDRALAZINE 20MG/ML VIAL IV SCH (19:30)
[2021-02-10] MEDS ORDERED: NITROGLYCERIN 1GM OINT 1 INCH/1GM TD ONE (22:29)
[2021-02-10] MEDS ORDERED: MAG/ALUM/SIMETH 30 ML UDCUP PO PRN (22:30)
[2021-02-10] MEDS ORDERED: LACTULOSE 20 GM/30 ML UDCUP PO PRN (22:30)
[2021-02-10] MEDS ORDERED: ONDANSETRON 4MG INJ IV PRN (22:30)
[2021-02-10] MEDS ORDERED: NITROGLYCERIN 0.4 MG SL TAB SL PRN (22:30)
[2021-02-10] MEDS ORDERED: ZOLPIDEM TARTRATE 5 MG TAB PO PRN (22:30)
[2021-02-10] MEDS ORDERED: HYDROCODONE/ACETAMINOPHEN 5/325 MG TAB PO PRN (22:30)
[2021-02-10] MEDS ORDERED: MORPHINE 4 MG SYG IV PRN (22:30)
[2021-02-10] MEDS ORDERED: ACETAMINOPHEN 325 MG TAB PO PRN ×2 (22:30)
[2021-02-10] MEDS: NITROGLYCERIN 1GM OINT 1 INCH/1GM TD SCH (22:54)
[2021-02-11] VITALS (8 sets, daily range): BP systolic 157–202; BP diastolic 75–92
[2021-02-11] MEDS: HYDRALAZINE 20MG/ML VIAL IV PRN ×2 (01:26→22:07)
[2021-02-11 01:35] LABS: CREATININE 2.6 mg/dL (0.5-1.5); POTASSIUM 4.2 mmol/L (3.5-5.1)
[2021-02-11] MEDS: ALPRAZOLAM 0.5 MG TABLET PO PRN ×2 (02:39→21:56)
[2021-02-11] MEDS ORDERED: ZINC30TA2 PO (02:52)
[2021-02-11] MEDS ORDERED: NITR0.4T50 SL (02:52)
[2021-02-11] MEDS ORDERED: ALPR-409 PO (02:52)
[2021-02-11] MEDS ORDERED: BUSP10TA3 PO (02:52)
[2021-02-11] MEDS ORDERED: MV-M1TAB20 PO (02:52)
[2021-02-11] MEDS ORDERED: MECO10005 PO (02:52)
[2021-02-11] MEDS ORDERED: CETI10TA87 PO (02:52)
[2021-02-11] MEDS: NITROGLYCERIN 1GM OINT 1 INCH/1GM TD SCH ×3 (05:19→21:56)
[2021-02-11 07:35] LABS: HEMATOCRIT 37.9 % (42-54); MEAN CORPUSCULAR HGB CONC 32.2 g/dL (32.0-36.0); MEAN CORPUSCULAR VOLUME 83.8 fL (79-99); RED BLOOD CELL COUNT(AUTO) 4.52 MIL/uL (4.50-6.20); RED CELL DISTRIBUTION WIDTH 16.9 % (11.0-15.5); WHITE BLOOD COUNT (AUTO) 8.4 K/uL (4.8-10.8)
[2021-02-11] MEDS ORDERED: ASPIRIN 81 MG EC TAB PO SCH (09:00)
[2021-02-11] MEDS: PNEUMOCOCCAL VACCINE POLYVALENT 0.5 ML/VIAL [PPV] SQ SCH (09:00)
[2021-02-11] MEDS: METOPROLOL SUCCINATE 50 MG TAB.SR.24H PO SCH (09:53)
[2021-02-11] MEDS: CLOPIDOGREL 75MG TAB PO SCH (09:53)
[2021-02-11] MEDS: FAMOTIDINE 20MG TAB PO SCH (09:53)
[2021-02-11] MEDS: FUROSEMIDE 40 MG TABLET PO SCH (09:53)
[2021-02-11] MEDS: CLONIDINE HCL 0.1 MG TABLET PO SCH ×2 (09:54→20:26)
[2021-02-11] MEDS: ENOXAPARIN SODIUM 30 MG/0.3 ML SQ SCH (09:55)
[2021-02-11] MEDS ORDERED: NIFEDIPINE ER 30 MG TAB PO ONE (11:15)
[2021-02-11] MEDS ORDERED: CLOPIDOGREL 75MG TAB PO SCH (11:15)
[2021-02-11] MEDS ORDERED: NIFEDIPINE ER 30 MG TAB PO SCH (11:30)
[2021-02-11] MEDS ORDERED: HYDRALAZINE 25MG TABLET ONE (12:03)
[2021-02-11] MEDS: HYDRALAZINE 25MG TABLET PO SCH ×3 (12:09→20:25)
[2021-02-11] MEDS: RIVAROXABAN 15 MG TABLET PO SCH (14:38)
[2021-02-11] MEDS ORDERED: ATORVASTATIN 20 MG TABLET PO SCH (21:00)
[2021-02-12] VITALS: BP 153/74
[2021-02-12 04:00] VITALS: BP 125/68
[2021-02-12 05:26] LABS: HEMATOCRIT 39.5 % (42-54); MEAN CORPUSCULAR HGB CONC 32.7 g/dL (32.0-36.0); MEAN CORPUSCULAR VOLUME 82.8 fL (79-99); PLATELET COUNT (AUTO) 232 K/uL (130-400); RED BLOOD CELL COUNT(AUTO) 4.77 MIL/uL (4.50-6.20); RED CELL DISTRIBUTION WIDTH 16.9 % (11.0-15.5); WHITE BLOOD COUNT (AUTO) 10.2 K/uL (4.8-10.8)
[2021-02-12 05:40] LABS: ALBUMIN 3.6 g/dL (3.5-5.0); BILIRUBIN,TOTAL 0.4 mg/dL (0.2-1.0); CREATININE 2.9 mg/dL (0.5-1.5); MAGNESIUM 1.8 mg/dL (1.80-2.40); PHOSPHORUS 4.9 mg/dL (2.5-4.9); POTASSIUM 4.7 mmol/L (3.5-5.1); TOTAL PROTEIN, SERUM 6.9 g/dL (6.0-8.3); URIC ACID 9.8 mg/dL (2.6-7.2)
[2021-02-12 06:06] LABS: LYMPHOCYTES % (MANUAL) 10 % (22-44); MAN.DIFF COMMENT-IMPRESSION MANUAL DIFFERENTIAL; MONOCYTES % (MANUAL) 9 % (2-9); PLATELET MORPHOLOGY COMMENT ADEQUATE; SEGMENTED NEUTROPHILS % 81 % (40-70)
[2021-02-12] MEDS: NITROGLYCERIN 1GM OINT 1 INCH/1GM TD SCH (06:32)
[2021-02-12 07:00] VITALS: BP 153/78
[2021-02-12] MEDS ORDERED: RIVAROXABAN 15 MG TABLET PO SCH (09:00)
[2021-02-12] MEDS: HYDRALAZINE 25MG TABLET PO SCH (10:04)
[2021-02-12] MEDS: CLONIDINE HCL 0.1 MG TABLET PO SCH (10:05)
[2021-02-12] MEDS: FUROSEMIDE 40 MG TABLET PO SCH (10:05)
[2021-02-12] MEDS: FAMOTIDINE 20MG TAB PO SCH (10:05)
[2021-02-12] MEDS: CLOPIDOGREL 75MG TAB PO SCH (10:06)
[2021-02-12] MEDS: METOPROLOL SUCCINATE 50 MG TAB.SR.24H PO SCH (10:06)
[2021-02-12] MEDS: ENOXAPARIN SODIUM 30 MG/0.3 ML SQ SCH (10:07)
[2021-02-12] MEDS: RIVAROXABAN 15 MG TABLET PO SCH (10:42)
[2021-02-12] MEDS: PNEUMOCOCCAL VACCINE POLYVALENT 0.5 ML/VIAL [PPV] SQ SCH (10:50)
[2021-02-12 11:00] VITALS: BP 155/72
[2021-02-12] MEDS ORDERED: CLON0.1T PO (12:19)
[2021-02-12] MEDS ORDERED: LABE200T5 PO (12:19)
== END 2021-02-12 13:01 | disposition home or self-care (01) | DRG 305 ==
LOC: EDH 13:46 → EDHIP 22:04 → 4CH 02-11 01:43
PROVIDERS: ADMIT Internal Medicine; ATTEND Internal Medicine
PROC: 3E0134Z Introduction of Serum, Toxoid and Vaccine into Subcutaneous Tissue, Percutaneous Approach (ICD-10-PCS; principal; 2021-02-12)
DX: I16.0 Hypertensive urgency (principal); N17.9 Acute kidney failure, unspecified; N18.4 Chronic kidney disease, stage 4 (severe); I50.32 Chronic diastolic (congestive) heart failure; Z16.24 Resistance to multiple antibiotics; E87.5 Hyperkalemia; K21.9 Gastro-esophageal reflux disease without esophagitis; E78.5 Hyperlipidemia, unspecified; I25.10 Atherosclerotic heart disease of native coronary artery without angina pectoris; I48.0 Paroxysmal atrial fibrillation; I73.9 Peripheral vascular disease, unspecified; F32.A Depression, unspecified; I87.2 Venous insufficiency (chronic) (peripheral); I65.21 Occlusion and stenosis of right carotid artery; I13.0 Hypertensive heart and chronic kidney disease with heart failure and stage 1 through stage 4 chronic kidney disease, or unspecified chronic kidney disease; F41.1 Generalized anxiety disorder; E78.00 Pure hypercholesterolemia, unspecified; Z23 Encounter for immunization; Z79.01 Long term (current) use of anticoagulants; Z79.899 Other long term (current) drug therapy; Z87.891 Personal history of nicotine dependence; Z80.42 Family history of malignant neoplasm of prostate; Z83.3 Family history of diabetes mellitus; Z82.49 Family history of ischemic heart disease and other diseases of the circulatory system
CPT/HCPCS: 36415; 70450; 80048; 80053; 81001; 82550; 83735; 83880; 84100; 84484; 84550; 85025; 85027; 85610; 85730; 90732; 93005; 93306; 93356; G0378; J0360; J1650

== ENCOUNTER 2021-04-15 15:53 | Observation (INO) | payer MEDICARE ==
[~2021-04-15] VITALS: Ht 182.9 cm; Wt 99.8 kg
[~2021-04-15 15:53] MED LIST changes: +ALPR-409 PO; +BUSP10TA3 PO; +CETI10TA87 PO; -ESCI-8 PO; +LABE200T5 PO; +MECO10005 PO; -METO200T49 PO; +MV-M1TAB20 PO; +NITR0.4T50 SL; +ZINC30TA2 PO
[2021-04-15] MEDS ORDERED: METOPROLOL TARTRATE 1 MG/ML 5ML VIAL IV ONE (16:30)
[2021-04-15 16:51] LABS: BASOPHILS % (AUTO) 0.3 % (0.0-5.0); HEMATOCRIT 36.4 % (42-54); LYMPHOCYTES % (AUTO) 8.6 % (21.0-51.0); MEAN CORPUSCULAR HEMOGLOBIN 28.6 pg (27.0-33.0); MEAN CORPUSCULAR HGB CONC 32.4 g/dL (32.0-36.0); MEAN CORPUSCULAR VOLUME 88.1 fL (79-99); MONOCYTES % (AUTO) 7.9 % (3.0-13.0); NEUTROPHILS % (AUTO) 80.7 % (40.0-77.0); PLATELET COUNT (AUTO) 183 K/uL (130-400); RED BLOOD CELL COUNT(AUTO) 4.13 MIL/uL (4.50-6.20); RED CELL DISTRIBUTION WIDTH 13.7 % (11.0-15.5); WHITE BLOOD COUNT (AUTO) 9.5 K/uL (4.8-10.8)
[2021-04-15 17:15] LABS: POTASSIUM 4.7 mmol/L (3.5-5.1)
[2021-04-15 17:25] LABS: BILIRUBIN,TOTAL 0.4 mg/dL (0.2-1.0); TOTAL PROTEIN, SERUM 6.1 g/dL (6.0-8.3)
[2021-04-15] MEDS ORDERED: METOPROLOL TARTRATE 50 MG TAB PO ONE (17:30)
[2021-04-15] MEDS ORDERED: ASPIRIN 81MG CHEW TAB ONE (17:54)
[2021-04-15] MEDS ORDERED: METOPROLOL TARTRATE 50 MG TAB ONE (17:55)
[2021-04-15] MEDS ORDERED: 0.9%NACL 1000ML 1,000 ML IV ONE (18:00)
[2021-04-15] MEDS ORDERED: ASPIRIN 81MG CHEW TAB PO ONE (18:00)
[2021-04-15] MEDS ORDERED: HYDRALAZINE 20MG/ML VIAL IV PRN (20:00)
[2021-04-15] MEDS ORDERED: METO100T14 PO (20:36)
[2021-04-15] MEDS ORDERED: METOPROLOL TARTRATE 50 MG TAB PO SCH (21:00)
[2021-04-15] MEDS: NITROGLYCERIN 1GM OINT 1 INCH/1GM TD SCH (21:07)
[2021-04-15] MEDS ORDERED: HYDRALAZINE 25MG TABLET ONE (22:51)
[2021-04-15] MEDS ORDERED: ALPRAZOLAM 0.25 MG TABLET PO PRN (23:00)
[2021-04-16] MEDS: NITROGLYCERIN 1GM OINT 1 INCH/1GM TD SCH ×2 (05:23→12:23)
[2021-04-16 07:49] LABS: BASOPHILS % (AUTO) 0.5 % (0.0-5.0); EOSINOPHILS % (AUTO) 5.1 % (0.0-8.0); HEMATOCRIT 38.6 % (42-54); MEAN CORPUSCULAR HEMOGLOBIN 28.7 pg (27.0-33.0); MEAN CORPUSCULAR HGB CONC 31.9 g/dL (32.0-36.0); MEAN CORPUSCULAR VOLUME 90.2 fL (79-99); MONOCYTES % (AUTO) 9.6 % (3.0-13.0); NEUTROPHILS % (AUTO) 70.5 % (40.0-77.0); PLATELET COUNT (AUTO) 184 K/uL (130-400); RED BLOOD CELL COUNT(AUTO) 4.28 MIL/uL (4.50-6.20); WHITE BLOOD COUNT (AUTO) 8.6 K/uL (4.8-10.8)
[2021-04-16 08:06] LABS: INR 1.11 (0.85-1.15)
[2021-04-16 08:07] LABS: PARTIAL THROMBOPLASTIN TIME 29.9 SEC (26.3-35.5)
[2021-04-16 08:37] LABS: MAGNESIUM 1.9 mg/dL (1.80-2.40); PHOSPHORUS 4.5 mg/dL (2.5-4.9); POTASSIUM 4.6 mmol/L (3.5-5.1)
[2021-04-16] MEDS ORDERED: FAMOTIDINE 20MG TAB PO SCH (09:00)
[2021-04-16] MEDS ORDERED: ZINC 30 MG PO SCH (09:00)
[2021-04-16] MEDS ORDERED: ASPIRIN 81MG CHEW TAB PO SCH (09:00)
[2021-04-16] MEDS ORDERED: RIVAROXABAN 15 MG TABLET PO SCH (09:00)
[2021-04-16] MEDS ORDERED: BUSPIRONE HCL 5 MG TABLET PO SCH (09:00)
[2021-04-16] MEDS ORDERED: LISINOPRIL 10 MG TABLET PO SCH (09:00)
[2021-04-16] MEDS ORDERED: METOPROLOL TARTRATE 50 MG TAB PO SCH (09:00)
[2021-04-16] MEDS ORDERED: CLOPIDOGREL 75MG TAB PO SCH (09:00)
[2021-04-16] MEDS ORDERED: CLONIDINE HCL 0.1 MG TABLET PO PRN (11:30)
[2021-04-16] MEDS ORDERED: NITROGLYCERIN 0.4 MG SL TAB SL PRN (11:30)
[2021-04-16] MEDS ORDERED: HYDRALAZINE 25MG TABLET PO SCH (14:00)
[2021-04-16 15:00] VITALS: BP 144/72
[2021-04-16] MEDS ORDERED: ATORVASTATIN 20 MG TABLET PO SCH (21:00)
[2021-04-16] MEDS ORDERED: CETIRIZINE HCL 5 MG TABLET PO SCH (21:00)
[2021-04-17] MEDS ORDERED: VIT D3 COMPLETE PO SCH (09:00)
[2021-04-17] MEDS ORDERED: METOPROLOL TARTRATE 50 MG TAB PO SCH (09:00)
[2021-04-17] MEDS ORDERED: CYANOCOBALAMIN (VITAMIN B-12) 1,000 MCG TABLET PO SCH (09:00)
== END 2021-04-16 14:25 | disposition home or self-care (01) ==
LOC: EDH 15:53 → INTOOBSV 19:55 → EDHIP 19:55
PROVIDERS: ADMIT Internal Medicine; ATTEND Internal Medicine
DX: I48.20 Chronic atrial fibrillation, unspecified (principal); R07.89 Other chest pain; I16.0 Hypertensive urgency; I12.9 Hypertensive chronic kidney disease with stage 1 through stage 4 chronic kidney disease, or unspecified chronic kidney disease; N18.4 Chronic kidney disease, stage 4 (severe); I51.7 Cardiomegaly; N17.0 Acute kidney failure with tubular necrosis; E78.00 Pure hypercholesterolemia, unspecified; E87.5 Hyperkalemia; E66.9 Obesity, unspecified; F41.9 Anxiety disorder, unspecified; F32.A Depression, unspecified; E78.5 Hyperlipidemia, unspecified; R42 Dizziness and giddiness; R77.8 Other specified abnormalities of plasma proteins; Z87.891 Personal history of nicotine dependence; Z79.82 Long term (current) use of aspirin; Z79.899 Other long term (current) drug therapy; Z98.890 Other specified postprocedural states; Z68.29 Body mass index [BMI] 29.0-29.9, adult
CPT/HCPCS: 36415 ×2; 71045; 80048; 80053; 83735; 84100; 84484 ×3; 85025 ×2; 85610; 85730; 93005; 96361 ×2; 96374; 96375; 99291; G0378 ×3; J0360; J3490

== ENCOUNTER 2021-10-19 05:42 | Day surgery (SDC) | payer MEDICARE ==
[2021-10-18 12:41] LABS: BASOPHILS % (AUTO) 0.3 % (0.0-5.0); EOSINOPHILS % (AUTO) 2.1 % (0.0-8.0); HEMATOCRIT 33.8 % (42-54); LYMPHOCYTES % (AUTO) 15.3 % (21.0-51.0); MEAN CORPUSCULAR HEMOGLOBIN 30.6 pg (27.0-33.0); MEAN CORPUSCULAR HGB CONC 32.8 g/dL (32.0-36.0); MEAN CORPUSCULAR VOLUME 93.1 fL (79-99); MONOCYTES % (AUTO) 6.9 % (3.0-13.0); NEUTROPHILS % (AUTO) 74.7 % (40.0-77.0); PLATELET COUNT (AUTO) 186 K/uL (130-400); RED BLOOD CELL COUNT(AUTO) 3.63 MIL/uL (4.50-6.20); WHITE BLOOD COUNT (AUTO) 8.6 K/uL (4.8-10.8)
[2021-10-18 12:51] LABS: CREATININE 3.8 mg/dL (0.5-1.5); POTASSIUM 5.3 mmol/L (3.5-5.1)
[2021-10-18 12:56] LABS: INR 1.29 (0.85-1.15); PROTHROMBIN TIME 13.9 SEC (9.6-11.6)
[2021-10-18 12:58] LABS: PARTIAL THROMBOPLASTIN TIME 36.7 SEC (26.3-35.5)
[2021-10-18 13:12] VITALS: BP 122/76
[2021-10-19] VITALS (9 sets, daily range): BP systolic 106–154; BP diastolic 59–93
[~2021-10-19] VITALS: Ht 182.9 cm; Wt 101.9 kg
[~2021-10-19 05:42] MED LIST changes: -BUSP10TA3 PO; -CETI10TA87 PO; -HYDR-4154 PO; +HYDR100T27 PO; -LABE200T5 PO; +METO100T14 PO; -MV-M1TAB20 PO; -NITR0.4T50 SL; -ZINC30TA2 PO
[2021-10-19] MEDS ORDERED: 0.9%NACL 1000ML 1,000 ML IV ONE (06:22)
[2021-10-19] MEDS ORDERED: PROP325C5 PO (06:54)
[2021-10-19] MEDS ORDERED: 0.9%NACL 1000ML 1,000 ML IV SCH (08:00)
[2021-10-19] MEDS ORDERED: PROPOFOL 10 MG/ML 20ML VIAL IV ONE ×2 (08:32→08:33)
== END 2021-10-19 09:35 | disposition home or self-care (01) ==
LOC: DAH 05:42
PROVIDERS: ATTEND Internal Medicine Cardiovascular Disease
DX: I48.19 Other persistent atrial fibrillation (principal); I44.0 Atrioventricular block, first degree; I13.2 Hypertensive heart and chronic kidney disease with heart failure and with stage 5 chronic kidney disease, or end stage renal disease; N18.6 End stage renal disease; I50.9 Heart failure, unspecified; I45.10 Unspecified right bundle-branch block; K21.9 Gastro-esophageal reflux disease without esophagitis; I25.10 Atherosclerotic heart disease of native coronary artery without angina pectoris; I73.9 Peripheral vascular disease, unspecified; E78.5 Hyperlipidemia, unspecified; I87.2 Venous insufficiency (chronic) (peripheral); Z98.890 Other specified postprocedural states; Z98.52 Vasectomy status; Z79.01 Long term (current) use of anticoagulants; Z79.899 Other long term (current) drug therapy; Z72.89 Other problems related to lifestyle
CPT/HCPCS: 36415 ×2; 80048; 84132; 85025; 85610; 85730; 87635; 92960; 93005 ×2; A4215; A4216; A4221; A4222; A4223 ×3; A4606; A4657; A7002; C9803; J2704; J7030; 99151

== ENCOUNTER 2022-03-07 21:21 | Emergency (ER) | payer MEDICARE ==
[~2022-03-07] VITALS: Ht 182.9 cm; Wt 93.0 kg
[~2022-03-07 21:21] MED LIST changes: -MECO10005 PO; +PROP325C5 PO
[2022-03-07] MEDS ORDERED: NITROGLYCERIN 0.4 MG SL TAB SL PRN (21:30)
[2022-03-07] MEDS ORDERED: ASPIRIN 81MG CHEW TAB PO ONE (21:30)
[2022-03-07] MEDS ORDERED: NITROGLYCERIN 1GM OINT 1 INCH/1GM TD ONE ×2 (21:30→21:36)
[2022-03-07] MEDS ORDERED: HYDRALAZINE 20MG/ML VIAL ONE (21:39)
[2022-03-07 21:42] LABS: BASOPHILS % (AUTO) 0.6 % (0.0-5.0); EOSINOPHILS % (AUTO) 4.2 % (0.0-8.0); HEMATOCRIT 34.2 % (42-54); LYMPHOCYTES % (AUTO) 19.7 % (21.0-51.0); MEAN CORPUSCULAR HEMOGLOBIN 30.5 pg (27.0-33.0); MEAN CORPUSCULAR HGB CONC 35.1 g/dL (32.0-36.0); MEAN CORPUSCULAR VOLUME 86.8 fL (79-99); MONOCYTES % (AUTO) 10.9 % (3.0-13.0); NEUTROPHILS % (AUTO) 64.2 % (40.0-77.0); PLATELET COUNT (AUTO) 197 K/uL (130-400); RED BLOOD CELL COUNT(AUTO) 3.94 MIL/uL (4.50-6.20); WHITE BLOOD COUNT (AUTO) 9.4 K/uL (4.8-10.8)
[2022-03-07 21:57] LABS: APPEARANCE,URINE CLEAR (CLEAR); BILIRUBIN,URINE NEGATIVE (NEGATIVE); COLOR,URINE COLORLESS (YELLOW); GLUCOSE, URINE (UA) NEGATIVE (NEGATIVE); KETONES,URINE NEGATIVE (NEGATIVE); LEUKOCYTE ESTERASE ,URINE NEGATIVE Leu/uL (NEGATIVE); NITRATE,URINE NEGATIVE (NEGATIVE); OCCULT BLOOD,URINE NEGATIVE (NEGATIVE); PROTEIN,URINE 100 mg/dL (NEGATIVE); UROBILINOGEN,URINE 0.2 mg/dL (0.2-1.0)
[2022-03-07 21:59] LABS: SQUAMOUS EPITHELIAL CELL,UR RARE /HPF (0-2); WBC,URINE 0-1 /HPF (0-1)
[2022-03-07] MEDS ORDERED: HYDRALAZINE 20MG/ML VIAL IV ONE (22:00)
[2022-03-07 22:02] LABS: CREATININE 3.7 mg/dL (0.5-1.5); POTASSIUM 4.9 mmol/L (3.5-5.1)
[2022-03-07 22:06] LABS: ALBUMIN 3.5 g/dL (3.5-5.0); TOTAL PROTEIN, SERUM 6.3 g/dL (6.0-8.3)
[2022-03-07 22:18] LABS: CREATINE KINASE, TOTAL 81 U/L (21-232); CRP QUANTITATIVE < 2.00 mg/L (0.00-9.0)
[2022-03-07] MEDS ORDERED: CYCLOBENZAPRINE HCL 10 MG TABLET PO ONE (22:30)
[2022-03-07] MEDS ORDERED: KETOROLAC 30MG VIAL (30MG/ML) IM ONE (22:30)
[2022-03-07 23:50] VITALS: BP 157/69
== END 2022-03-08 00:19 | disposition home or self-care (01) ==
LOC: EDH 21:21
DX: R07.89 Other chest pain (principal); E78.00 Pure hypercholesterolemia, unspecified; I10 Essential (primary) hypertension; I48.91 Unspecified atrial fibrillation; Z79.1 Long term (current) use of non-steroidal anti-inflammatories (NSAID); Z88.8 Allergy status to other drugs, medicaments and biological substances
CPT/HCPCS: 99285; 96374; 71045; 82550; 84484 ×2; 80053; 83880; 85025; 86140; 81001; 36415; 93005; J0360

== ENCOUNTER → 2022-04-11 | Outpatient (CLI) | payer MEDICARE ==
[~2022-04-11] VITALS: Ht 182.9 cm; Wt 97.7 kg
[~2022-04-11] MED LIST changes: +0.9%NACL 1000ML 1,000 ML IV ONE; +AMLO2.5T4 PO; +BUSP10TA3 PO; +DOCU100T PO; +HYDR-4154 PO; +METO-391 PO; +METO200T49 PO; +MV-M1TAB20 PO; +PHARMACY COMMUNICATION MISC SCH; +VITAMIN B12 PO
[2022-04-11 11:19] LABS: BASOPHILS % (AUTO) 0.6 % (0.0-5.0); EOSINOPHILS % (AUTO) 2.6 % (0.0-8.0); HEMATOCRIT 32.6 % (42-54); LYMPHOCYTES % (AUTO) 18.2 % (21.0-51.0); MEAN CORPUSCULAR HEMOGLOBIN 30.7 pg (27.0-33.0); MEAN CORPUSCULAR VOLUME 90.1 fL (79-99); MONOCYTES % (AUTO) 7.8 % (3.0-13.0); NEUTROPHILS % (AUTO) 70.2 % (40.0-77.0); PLATELET COUNT (AUTO) 201 K/uL (130-400); RED BLOOD CELL COUNT(AUTO) 3.62 MIL/uL (4.50-6.20); RED CELL DISTRIBUTION WIDTH 12.9 % (11.0-15.5); WHITE BLOOD COUNT (AUTO) 6.9 K/uL (4.8-10.8)
[2022-04-11 11:26] LABS: CREATININE 3.9 mg/dL (0.5-1.5); POTASSIUM 4.5 mmol/L (3.5-5.1)
[2022-04-11 11:45] LABS: INR 1.23 (0.85-1.15); PROTHROMBIN TIME 13.3 SEC (9.6-11.6)
[2022-04-11 11:46] LABS: PARTIAL THROMBOPLASTIN TIME 36.4 SEC (26.3-35.5)
[2022-04-11 14:42] VITALS: BP 148/84
== END ==
LOC: DAH 10:00 → EDSTATUS 05-08 14:00
PROVIDERS: ATTEND Internal Medicine Cardiovascular Disease
DX: Z01.818 Encounter for other preprocedural examination (principal); I48.3 Typical atrial flutter; Z79.01 Long term (current) use of anticoagulants
CPT/HCPCS: 36415; 80048; 85025; 85610; 85730; 93005; J7030

== ENCOUNTER 2022-04-20 12:01 | Emergency (ER) | payer MEDICARE ==
[~2022-04-20] VITALS: Ht 182.9 cm; Wt 93.0 kg
[~2022-04-20 12:01] MED LIST changes: -0.9%NACL 1000ML 1,000 ML IV ONE; -HYDR100T27 PO; -METO100T14 PO; -PHARMACY COMMUNICATION MISC SCH
[2022-04-20 12:08] VITALS: BP 147/100
[2022-04-20 12:25] LABS: BASOPHILS % (AUTO) 0.6 % (0.0-5.0); EOSINOPHILS % (AUTO) 2.4 % (0.0-8.0); HEMATOCRIT 34.8 % (42-54); LYMPHOCYTES % (AUTO) 14.9 % (21.0-51.0); MEAN CORPUSCULAR HEMOGLOBIN 31.1 pg (27.0-33.0); MEAN CORPUSCULAR HGB CONC 33.9 g/dL (32.0-36.0); MEAN CORPUSCULAR VOLUME 91.8 fL (79-99); MONOCYTES % (AUTO) 9.2 % (3.0-13.0); NEUTROPHILS % (AUTO) 72.4 % (40.0-77.0); PLATELET COUNT (AUTO) 216 K/uL (130-400); RED BLOOD CELL COUNT(AUTO) 3.79 MIL/uL (4.50-6.20); RED CELL DISTRIBUTION WIDTH 12.7 % (11.0-15.5); WHITE BLOOD COUNT (AUTO) 10.3 K/uL (4.8-10.8)
[2022-04-20 12:34] LABS: CREATININE 4.2 mg/dL (0.5-1.5)
[2022-04-20 12:38] LABS: ALBUMIN 3.2 g/dL (3.5-5.0); MAGNESIUM 1.6 mg/dL (1.80-2.40); TOTAL PROTEIN, SERUM 6.4 g/dL (6.0-8.3)
[2022-04-20 13:05] LABS: B-TYPE NATRIURETIC PEPTIDE 359 pg/mL (0-100)
[2022-04-20] MEDS ORDERED: MAGNESIUM 2GM PREMIX 50ML 50 ML IV SCH (13:45)
[2022-04-20 14:04] LABS: APPEARANCE,URINE CLEAR (CLEAR); BILIRUBIN,URINE NEGATIVE (NEGATIVE); COLOR,URINE LIGHT-YELLOW (YELLOW); GLUCOSE, URINE (UA) NEGATIVE (NEGATIVE); KETONES,URINE NEGATIVE (NEGATIVE); LEUKOCYTE ESTERASE ,URINE NEGATIVE Leu/uL (NEGATIVE); NITRATE,URINE NEGATIVE (NEGATIVE); OCCULT BLOOD,URINE NEGATIVE (NEGATIVE); PROTEIN,URINE 200 mg/dL (NEGATIVE); UROBILINOGEN,URINE 0.2 mg/dL (0.2-1.0)
[2022-04-20 14:28] LABS: BACTERIA,URINE RARE /HPF (None Seen); RBC,URINE 0-1 /HPF (0-1); SQUAMOUS EPITHELIAL CELL,UR RARE /HPF (0-2); WBC,URINE 0-1 /HPF (0-1)
== END 2022-04-20 16:56 | disposition home or self-care (01) ==
LOC: EDH 12:01
DX: I12.9 Hypertensive chronic kidney disease with stage 1 through stage 4 chronic kidney disease, or unspecified chronic kidney disease (principal); R07.9 Chest pain, unspecified; N18.4 Chronic kidney disease, stage 4 (severe); B34.9 Viral infection, unspecified; R07.89 Other chest pain; E78.00 Pure hypercholesterolemia, unspecified; I48.91 Unspecified atrial fibrillation; Z79.899 Other long term (current) drug therapy
CPT/HCPCS: 99291; 96365; 83735; 84484 ×2; 80053; 83880; 85025; 85378; 81001; 36415; 71045; 93005; J3475; 96366

== ENCOUNTER 2022-05-10 05:43 | Day surgery (SDC) | payer MEDICARE ==
[2022-05-08 15:09] LABS: BASOPHILS % (AUTO) 0.3 % (0.0-5.0); EOSINOPHILS % (AUTO) 2.4 % (0.0-8.0); HEMATOCRIT 35.5 % (42-54); LYMPHOCYTES % (AUTO) 12.7 % (21.0-51.0); MEAN CORPUSCULAR HGB CONC 33.2 g/dL (32.0-36.0); MEAN CORPUSCULAR VOLUME 93.2 fL (79-99); MONOCYTES % (AUTO) 9.4 % (3.0-13.0); NEUTROPHILS % (AUTO) 74.6 % (40.0-77.0); PLATELET COUNT (AUTO) 223 K/uL (130-400); RED BLOOD CELL COUNT(AUTO) 3.81 MIL/uL (4.50-6.20); RED CELL DISTRIBUTION WIDTH 13.2 % (11.0-15.5); WHITE BLOOD COUNT (AUTO) 10.8 K/uL (4.8-10.8)
[2022-05-08 15:16] LABS: CREATININE 4.3 mg/dL (0.5-1.5); POTASSIUM 4.6 mmol/L (3.5-5.1)
[2022-05-08 15:20] LABS: INR 1.34 (0.85-1.15); PROTHROMBIN TIME 14.4 SEC (9.6-11.6)
[2022-05-08 15:21] LABS: PARTIAL THROMBOPLASTIN TIME 38.1 SEC (26.3-35.5)
[2022-05-09 09:20] VITALS: BP 146/89
[~2022-05-10] VITALS: Ht 182.9 cm; Wt 96.4 kg
[2022-05-10] VITALS (9 sets, daily range): BP systolic 121–158; BP diastolic 66–77
[2022-05-10] MEDS ORDERED: 0.9% NACL 500ML IV.SOLN 500 ML IV SCH (06:00)
[2022-05-10] MEDS ORDERED: 0.9%NACL 1000ML 1,000 ML IV ONE (06:14)
[2022-05-10] MEDS ORDERED: MIDAZOLAM HCL 1 MG/ML 2ML VIAL ONE ×2 (07:38→08:08)
[2022-05-10] MEDS ORDERED: LIDOCAINE HCL 400MG/20ML VIAL ONE (07:38)
[2022-05-10] MEDS ORDERED: HEPARIN 10,000 UNIT/10ML (1,000 UNIT/ML) VIAL ONE (07:38)
[2022-05-10] MEDS ORDERED: MEPERIDINE-PF 25 MG/ML SYG ONE ×2 (07:39→08:09)
== END 2022-05-10 12:55 | disposition home or self-care (01) ==
LOC: DAH 05:43
PROVIDERS: ATTEND Internal Medicine Cardiovascular Disease
DX: I48.3 Typical atrial flutter (principal); I49.3 Ventricular premature depolarization; I25.2 Old myocardial infarction; I45.10 Unspecified right bundle-branch block; I48.0 Paroxysmal atrial fibrillation; I25.10 Atherosclerotic heart disease of native coronary artery without angina pectoris; I73.9 Peripheral vascular disease, unspecified; E78.5 Hyperlipidemia, unspecified; K21.9 Gastro-esophageal reflux disease without esophagitis; I87.2 Venous insufficiency (chronic) (peripheral); I12.0 Hypertensive chronic kidney disease with stage 5 chronic kidney disease or end stage renal disease; N18.5 Chronic kidney disease, stage 5; Z79.01 Long term (current) use of anticoagulants; Z82.49 Family history of ischemic heart disease and other diseases of the circulatory system; Z95.5 Presence of coronary angioplasty implant and graft; Z79.899 Other long term (current) drug therapy
CPT/HCPCS: 80048; 85025; 85610; 85730; 36415; 93005 ×2; 93653; C1894 ×2; A4649 ×2; C1732; C1730; J3490; J7030; J1644 ×2; J2250 ×2; J2175 ×2; A4215; A4222; A4221; A4663; A4216; A4606; A4223 ×3; 99156; 99157

== ENCOUNTER → 2022-06-14 | Outpatient (CLI) | payer MEDICARE | END | disposition home or self-care (01) | LOC: SHCH 08:04 | PROVIDERS: ATTEND Internal Medicine Cardiovascular Disease | DX: I07.1 Rheumatic tricuspid insufficiency (principal); I48.0 Paroxysmal atrial fibrillation; I11.9 Hypertensive heart disease without heart failure; E78.5 Hyperlipidemia, unspecified | CPT/HCPCS: 93306 ==

== ENCOUNTER 2023-02-03 07:04 | Day surgery (SDC) | payer MEDICARE ==
[2023-01-30 10:16] VITALS: BP 210/96; PULSE 63; RESP 18
[2023-01-30 10:25] LABS: BASOPHILS # (AUTO) 0.04 K/uL (0.00-0.20); BASOPHILS % (AUTO) 0.4 % (0.0-5.0); EOSINOPHILS # (AUTO) 0.32 K/uL (0.00-0.70); EOSINOPHILS % (AUTO) 3.6 % (0.0-8.0); HEMATOCRIT 30.4 % (42-54); IMMATURE GRANULOCYTE ABSOLUTE 0.04 K/uL (0-1); LYMPHOCYTES # (AUTO) 1.5 K/uL (1.0-4.8); MEAN CORPUSCULAR HEMOGLOBIN 29.8 pg (27.0-33.0); MEAN CORPUSCULAR HGB CONC 33.2 g/dL (32.0-36.0); MEAN CORPUSCULAR VOLUME 89.7 fL (79-99); MONOCYTES # (AUTO) 0.8 K/uL (0.1-1.0); MONOCYTES % (AUTO) 8.4 % (3.0-13.0); NEUTROPHILS # (AUTO) 6.3 K/uL (1.8-7.7); NEUTROPHILS % (AUTO) 70.2 % (40.0-77.0); PLATELET COUNT (AUTO) 199 K/uL (130-400); RED BLOOD CELL COUNT(AUTO) 3.39 MIL/uL (4.50-6.20); RED CELL DISTRIBUTION WIDTH 13.5 % (11.0-15.5)
[2023-01-30 10:44] LABS: INR 0.95 (0.85-1.15); PROTHROMBIN TIME 11.1 SEC (9.6-11.6)
[2023-01-30 10:45] LABS: PARTIAL THROMBOPLASTIN TIME 29.9 SEC (26.3-35.5)
[2023-02-03] VITALS (23 sets, daily range): BP systolic 134–208; BP diastolic 57–91; PULSE 54–72; RESP 13–20
[~2023-02-03] VITALS: Ht 182.9 cm; Wt 95.2 kg
[~2023-02-03 07:04] MED LIST changes: -ALPR-409 PO; +ALPR0.255 PO; -AMLO2.5T4 PO; -DOCU100T PO; +DRON400T7 PO; +FERS325 PO; +FOLI1TAB85 PO; -PROP325C5 PO
[2023-02-03] MEDS ORDERED: 0.9% NACL 500ML IV.SOLN 500 ML IV ONE (08:02)
[2023-02-03 08:03] LABS: CREATININE 4.6 mg/dL (0.5-1.5); POTASSIUM 5.1 mmol/L (3.5-5.1)
[2023-02-03] MEDS: CEFAZOLIN SODIUM 2 GM VIAL ONE ×2 (08:19→11:04)
[2023-02-03] MEDS ORDERED: LIDOCAINE HCL 1% 20 ML VIAL ONE (10:16)
[2023-02-03] MEDS ORDERED: BUPIVACAINE/PF 0.25% 30ML VIAL IJ ONE (10:17)
[2023-02-03] MEDS ORDERED: PROPOFOL 10 MG/ML 20ML VIAL IV ONE (10:38)
[2023-02-03] MEDS ORDERED: MIDAZOLAM HCL 1 MG/ML 2ML VIAL ONE (10:38)
[2023-02-03] MEDS ORDERED: FENTANYL CITRATE PF 50 MCG/1 ML 2ML VIAL ONE (10:39)
[2023-02-03] MEDS ORDERED: ONDANSETRON 4MG INJ ONE ×2 (10:46→12:17)
[2023-02-03] MEDS ORDERED: LIDOCAINE PF 100MG/5ML (2%) SYRINGE 5ML ONE (10:50)
[2023-02-03] MEDS ORDERED: ROCURONIUM 10MG/1ML SYR 10 MG/ML ML ONE (10:52)
[2023-02-03] MEDS ORDERED: EPHEDRINE SULFATE 50 MG/ML AMPULE ONE (11:06)
[2023-02-03] MEDS ORDERED: PHENYLEPHRINE HCL 10 MG/ML 1ML VIAL IV ONE (11:43)
[2023-02-03] MEDS ORDERED: NEOSTIGMINE 5MG/5ML SYR IV ONE (11:53)
[2023-02-03] MEDS ORDERED: GLYCOPYRROLATE 1 MG/5 ML SYRINGE ONE (11:53)
[2023-02-03] MEDS ORDERED: HEPARIN 10,000 UNIT/10ML (1,000 UNIT/ML) VIAL ONE (11:58)
[2023-02-03] MEDS ORDERED: PROMETHAZINE HCL 25 MG/ML 1ML AMPULE IM ONE (12:23)
[2023-02-03] MEDS ORDERED: CLONIDINE HCL 0.2 MG TABLET PO ONE (12:39)
[2023-02-03] MEDS ORDERED: IPRATROPIUM/ALBUTEROL SULFATE 3 ML SOLUTION IH ONE ×2 (13:15→13:30)
== END 2023-02-03 14:30 | disposition home or self-care (01) ==
LOC: DAH 07:04
PROVIDERS: ATTEND Student in an Organized Health Care Education/Training Program
DX: I13.11 Hypertensive heart and chronic kidney disease without heart failure, with stage 5 chronic kidney disease, or end stage renal disease (principal); N18.6 End stage renal disease; E78.5 Hyperlipidemia, unspecified; F41.9 Anxiety disorder, unspecified; K21.9 Gastro-esophageal reflux disease without esophagitis; I48.91 Unspecified atrial fibrillation; I73.9 Peripheral vascular disease, unspecified; Z98.52 Vasectomy status; Z98.890 Other specified postprocedural states; Z82.49 Family history of ischemic heart disease and other diseases of the circulatory system; Z80.42 Family history of malignant neoplasm of prostate; Z87.891 Personal history of nicotine dependence; Z99.2 Dependence on renal dialysis; Z79.01 Long term (current) use of anticoagulants; Z79.899 Other long term (current) drug therapy
CPT/HCPCS: 85025; 85610; 85730; 86850 ×2; 86900 ×2; 86901 ×2; 36415 ×2; 93005; 36821; 80048; 94640; A6260; A4663; J7040; J3010; J3490 ×3; J2710; J2550; J2001; J1644 ×2; J2250; J2704; J2405 ×2; J2371; J0690; A4649 ×3; C1713 ×2; A4930 ×2; A4215; A4223; A4222; A4221; G0168

== ENCOUNTER → 2023-05-08 | Outpatient (CLI) | payer MEDICARE | END | disposition home or self-care (01) | LOC: RAH 08:20 | PROVIDERS: ATTEND Internal Medicine Gastroenterology | DX: J90 Pleural effusion, not elsewhere classified (principal); R10.30 Lower abdominal pain, unspecified; K57.90 Diverticulosis of intestine, part unspecified, without perforation or abscess without bleeding; M47.815 Spondylosis without myelopathy or radiculopathy, thoracolumbar region; I70.90 Unspecified atherosclerosis | CPT/HCPCS: 74176 ==

== ENCOUNTER → 2023-09-03 | Outpatient (CLI) | payer MEDICARE ==
[~2023-09-03] MED LIST changes: -HYDR-4154 PO; +HYDR50TA37 PO; +METO200T37 PO; -METO200T49 PO
== END | disposition home or self-care (01) ==
LOC: SHCH 07:32
PROVIDERS: ATTEND Internal Medicine Cardiovascular Disease
DX: I65.23 Occlusion and stenosis of bilateral carotid arteries (principal)
CPT/HCPCS: 93880

== ENCOUNTER → 2023-09-12 | Outpatient (CLI) | payer MEDICARE | END | disposition home or self-care (01) | LOC: RAH 12:42 | PROVIDERS: ATTEND Internal Medicine Nephrology | DX: N28.1 Cyst of kidney, acquired (principal); I70.0 Atherosclerosis of aorta; J84.10 Pulmonary fibrosis, unspecified; R91.8 Other nonspecific abnormal finding of lung field; J90 Pleural effusion, not elsewhere classified; N28.89 Other specified disorders of kidney and ureter; M48.07 Spinal stenosis, lumbosacral region; K57.30 Diverticulosis of large intestine without perforation or abscess without bleeding; M47.815 Spondylosis without myelopathy or radiculopathy, thoracolumbar region | CPT/HCPCS: 72131; 74176 ==

== ENCOUNTER → 2023-12-04 | Outpatient (CLI) | payer MEDICARE | END | disposition home or self-care (01) | LOC: SHCH 09:58 | PROVIDERS: ATTEND Internal Medicine Cardiovascular Disease | DX: I48.0 Paroxysmal atrial fibrillation (principal); R00.2 Palpitations | CPT/HCPCS: 93306 ==

== ENCOUNTER → 2024-06-01 | Outpatient (CLI) | payer MEDICARE | END | disposition home or self-care (01) | LOC: SHCH 13:18 | PROVIDERS: ATTEND Internal Medicine Cardiovascular Disease | DX: I48.0 Paroxysmal atrial fibrillation (principal) | CPT/HCPCS: 93306 ==

== ENCOUNTER → 2024-08-03 | Outpatient (CLI) | payer MEDICARE ==
--- NOTE | 2024-08-03 14:19 | HMCIMG ---
CT CHEST HIGH RESOLUTION (WO) HISTORY: Pulmonary hypertension COMPARISON: None TECHNIQUE: Multiple sequential axial images of the chest were obtained from the thoracic inlet through upper abdomen. Patient was not given contrast through intravenous route. High-resolution images were obtained. FINDINGS: Hyperdense material is seen in the right lower lung may be related to aspirated barium. There are bilateral reticular nodular pulmonary infiltrates. There are interstitial fibrosis with bronchiectasis. Large right pleural effusion is seen. Tiny left pleural effusion is seen. Tiny pericardial effusion is seen. There is a small hiatal hernia. Calcified granuloma are seen in the spleen. There are bilateral renal cortical scarring. There is no evidence of pneumothorax. There are normal size mediastinal and hilar lymph nodes. The heart is borderline enlarged. Coronary arterial calcifications are seen. Degenerative changes of the thoracolumbar spine are present. There is no evidence of adrenal nodule. IMPRESSION: 1. Findings as described above. CT was performed with one or more following dose reduction techniques: automated exposure control, adjustment of the mA and kv according to patient's size, or use of a iterative reconstruction technique.
== END | disposition home or self-care (01) ==
LOC: RAH 13:37
PROVIDERS: ATTEND Internal Medicine Cardiovascular Disease
DX: J47.9 Bronchiectasis, uncomplicated (principal); J84.10 Pulmonary fibrosis, unspecified; R91.8 Other nonspecific abnormal finding of lung field; J90 Pleural effusion, not elsewhere classified; J98.4 Other disorders of lung; I31.39 Other pericardial effusion (noninflammatory); I27.20 Pulmonary hypertension, unspecified; K44.9 Diaphragmatic hernia without obstruction or gangrene; I25.10 Atherosclerotic heart disease of native coronary artery without angina pectoris; M47.815 Spondylosis without myelopathy or radiculopathy, thoracolumbar region; D73.89 Other diseases of spleen
CPT/HCPCS: 71250

== ENCOUNTER 2024-08-09 07:58 | Inpatient (IN) | payer MEDICARE ==
[~2024-08-09] VITALS: Ht 182.9 cm; Wt 86.2 kg
[2024-08-09 08:25] LABS: BASOPHILS # (AUTO) 0.04 K/uL (0.00-0.20); BASOPHILS % (AUTO) 0.5 % (0.0-5.0); EOSINOPHILS # (AUTO) 0.15 K/uL (0.00-0.70); EOSINOPHILS % (AUTO) 1.9 % (0.0-8.0); HEMATOCRIT 38.5 % (42-54); IMMATURE GRANULOCYTE ABSOLUTE 0.05 K/uL (0-1); LYMPHOCYTES % (AUTO) 12.6 % (21.0-51.0); MEAN CORPUSCULAR HEMOGLOBIN 36.4 pg (27.0-33.0); MEAN CORPUSCULAR VOLUME 106.9 fL (79-99); MONOCYTES # (AUTO) 0.5 K/uL (0.1-1.0); MONOCYTES % (AUTO) 6.4 % (3.0-13.0); NEUTROPHILS # (AUTO) 6.2 K/uL (1.8-7.7); PLATELET COUNT (AUTO) 221 K/uL (130-400); RED CELL DISTRIBUTION WIDTH 13.9 % (11.0-15.5); WHITE BLOOD COUNT (AUTO) 7.9 K/uL (4.8-10.8)
--- NOTE | 2024-08-09 08:32 | NUR ---
UA ORDER. PATIENT OLIGURIC.
[2024-08-09 08:33] LABS: CREATININE 4.7 mg/dL (0.5-1.3); POTASSIUM 3.6 mmol/L (3.5-5.1)
[2024-08-09 08:35] LABS: INR 1.22 (0.85-1.15); PROTHROMBIN TIME 12.7 SEC (9.6-11.6)
[2024-08-09 08:37] LABS: PARTIAL THROMBOPLASTIN TIME 36.9 SEC (26.3-35.5)
--- NOTE | 2024-08-09 08:39 | EKG ---
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
[2024-08-09 08:42] LABS: MAGNESIUM 1.8 mg/dL (1.80-2.40)
[2024-08-09 08:59] LABS: B-TYPE NATRIURETIC PEPTIDE 1790 pg/mL (0-100)
[2024-08-09 09:05] LABS: SARS-CoV-2, RNA, NAAT NEGATIVE SARS CoV-2 (NEGATIVE)
[2024-08-09 09:11] LABS: INFLUENZA TYPE A Negative For Type A (NEGATIVE); INFLUENZA TYPE B Negative For Type B (NEGATIVE)
--- NOTE | 2024-08-09 09:53 | HMCIMG ---
CHEST 1VW HISTORY: Shortness of breath COMPARISON: None FINDINGS: A frontal projection of the chest was obtained. There are bilateral pulmonary infiltrates suggestive of pulmonary vascular congestion with possible superimposed pneumonitis. There is right pleural effusion. The heart is borderline enlarged. Degenerative changes are seen. Artery calcifications are seen. IMPRESSION: 1. Bilateral pulmonary infiltrates are seen suggestive of pulmonary vascular congestion with possible superimposed pneumonitis.
--- NOTE | 2024-08-09 10:50 | ERN ---
General Chief Complaint: Shortness of Breath Stated Complaint: SOB, CHEST PRESSURE Time Seen by MD: 08:02 Source: patient History of Present Illness Initial Comments 73-YEAR-OLD MALE COMING IN COMPLAINING OF CHEST PRESSURE. HE STATES THAT THE CHEST PRESSURE BEGAN TWO DAYS AGO. HE ALSO STATES THAT HE DECIDED TO FOLLOW UP WITH THE ER DUE TO SHORTNESS OF BREATH. PATIENT STATES THAT HE DOES HAS A HISTORY OF ATRIAL FIBRILLATION END-STAGE RENAL DISEASE AND ONLY RECEIVE PARTIAL DIALYSIS YESTERDAY. Allergies: Coded Allergies: No Known Drug Allergies (Unverified Allergy, Unknown, 04/11/22) Home Meds Reported Medications Ferrous Sulfate (Ferrous Sulfate) 325 Mg (65 Mg Iron) Ectab, 325 MG PO DAILY, TAB.EC 01/30/23 Vit B Cmplx 3/FA/Vit C/Biotin (Dorie-Shoshana Rx Tablet) 1 Mg-60 Mg-300 Mcg Tablet, 1 EACH PO DAILY, TAB 01/30/23 Alprazolam (Alprazolam) 0.25 Mg Tablet, 0.25 MG PO AD PRN for ANXIETY, TAB 01/30/23 Dronedarone Hydrochloride (Multaq) 400 Mg Tablet, 400 MG PO BID, TAB 01/30/23 Mv-Mn/Iron/FA/Herbal Cmplx#190 (Vitamin D3 Complete Caplet) 18 Mg Iron-800 Mcg- 150 Mg Tablet, 1 EACH PO DAILY, TAB 04/11/22 [Vitamin B12] No Conflict Check, 1000 MCG PO DAILY 04/11/22 Buspirone HCl (Buspirone HCl) 10 Mg Tablet, 10 MG PO BID, TAB 04/11/22 Rivaroxaban (Xarelto) 15 Mg Tablet, 15 MG PO DAILY, TAB 04/11/22 Furosemide (Furosemide) 20 Mg Tablet, 20 MG PO DAILY, TAB 04/11/22 Clonidine HCl (Clonidine HCl) 0.1 Mg Tablet, 0.1 MG PO TID PRN for IF SBP GREATER THAN 160, TAB 04/11/22 Metoprolol Succinate (Metoprolol Succinate) 50 Mg Tab.er.24h, 50 MG PO HS, TAB 04/11/22 Hydralazine HCl (Hydralazine HCl) 50 Mg Tablet, 50 MG PO TID PRN for <PRM014 (LESS THAN 160), TAB 04/11/22 Metoprolol Succinate (Metoprolol Succinate) 200 Mg Tab.er.24h, 200 MG PO DAILY, TAB 04/11/22 Clopidogrel Bisulfate (Clopidogrel) 75 Mg Tablet, 75 MG PO DAILY, TAB 12/02/18 Pantoprazole Sodium (Pantoprazole Sodium) 40 Mg Tablet.dr, 40 MG PO DAILY, TAB 01/15/17 Atorvastatin Calcium (Atorvastatin Calcium) 20 Mg Tablet, 20 MG PO HS, TAB 01/15/17 Past Medical History Past Medical History: A-Fib, High Cholesterol, Heart Disease, Hypertension, Renal Failure Past Surgical History: Other, LAVA Surgical History Other: STOMACH STENT Family History Family History: HTN Social History Social History: Negative, Lives with family, Other ROS Dictation CONSTITUTIONAL: NO CHILLS, NO FEVER, NO WEAKNESS, NO DIAPHORESIS, NO MALAISE. HEAD/FACE: NO SIGNS OF TRAUMA. EENT: NO EYE PAIN, NO BLURRED VISION, NO TEARING, NO DOUBLE VISION, NO EAR PAIN, NO EAR DISCHARGE, NO NOSE PAIN, NO NASAL CONGESTION, NO THROAT PAIN, NO THROAT SWELLING, NO MOUTH PAIN. RESPIRATORY: NO COUGH, NO ORTHOPNEA, SOB, NO STRIDOR, NO WHEEZING. CARDIOVASCULAR: CHEST PAIN, NO EDEMA, NO PALPITATIONS, NO SYNCOPE. GASTROINTESTINAL/ABDOMINAL: NO ABDOMINAL PAIN, NO CONSTIPATION, NO DIARRHEA, NO NAUSEA, NO VOMITING. GENITOURINARY: NO ABNORMAL DISCHARGE, NO DYSURIA, NO FREQUENT URINATION, NO HEMATURIA. NO COMPLAINTS OF PAIN IN THE GENITALS. MUSCULOSKELETAL: NO BACK PAIN, NO GOUT, NO JOINT PAIN, NO JOINT SWELLING, NO MUSCLE PAIN, NO MUSCLE STIFFNESS, NO NECK PAIN. INTEGUMENTARY: NO CHANGE IN COLOR, NO CHANGE IN HAIR/NAILS, NO DRYNESS, NO LESION, NO LUMPS, NO RASH. NEUROLOGICAL/PSYCH: NO ANXIETY, NOT DEPRESSED, NO EMOTIONAL PROBLEM, NO HEADACHE, NO NUMBNESS, NO PRE-EXISTING DEFICIT, NO HISTORY OF SEIZURES, NO TREMORS, NO WEAKNESS. HEMATOLOGIC/LYMPHATIC: NOT ANEMIC, NO HISTORY OF BLOOD CLOTS, NO APPARENT BLEEDING, NO BRUISING, GLANDS NOT SWOLLEN. ALL SYSTEMS NEGATIVE, EXCEPT NOTED. Physical Exam Physical Exam Dictation VITAL SIGNS: REVIEWED. GENERAL APPEARANCE: ALERT, ORIENTED X3, NO ACUTE DISTRESS, OBESE. HEAD AND FACE: NON-TRAUMATIC. EYES: PERRL, PINK CONJUNCTIVAS, EYELID NO TRAUMA, ANTERIOR CHAMBER CLEAR. EARS: PINNAS INTACT AND NO SIGNS OF TRAUMA OR ERYTHEMA. EAR CANALS CLEAR AND NO DISCHARGE. TMS NO ERYTHEMA. NOSE: NO DISCHARGE, NO BLEEDING. OROPHARYNX: MOUTH NORMAL, TEETH NO CARIES, TONGUE PINK. PHARYNX CLEAR, NO ERYTHEMA. TONSILS NO EXUDATES, NO ABSCESSES NOTED. MUCOUS MEMBRANE MOIST. NECK: SUPPLE, NON-TENDER, NO THYROMEGALY, NO MASSES, NO JVD, NO BRUITS. BREAST: DEFERRED. CHEST: NO TENDERNESS, NO CREPITUS, NO PARADOXICAL MOVEMENT, NO RETRACTIONS. LUNGS: CLEAR, WELL-VENTILATED, SYMMETRIC, NO RALES, NO WHEEZING, NO RHONCHI, NO STRIDOR, GOOD BREATH SOUNDS BILATERALLY. HEART: REGULAR RATE, REGULAR RHYTHM, NO MURMUR, NO GALLOPS. VASCULAR: NO PERIPHERAL EDEMA. ABDOMEN: SOFT, POSITIVE BOWEL SOUNDS, NONDISTENDED, NO GUARDING, NONTENDER, NO REBOUND, NO MASSES NO HEPATOMEGALY, NO SPLENOMEGALY, NO BERRIOS'S SIGN, NO HERNIAS. RECTAL: DEFERRED. GENITAL: DEFERRED. NEUROLOGICAL: NORMAL SPEECH, GROSS MOTOR FUNCTION INTACT, GROSS SENSORY FUNCTION INTACT. MUSCULOSKELETAL: NECK NONTENDER, FULL RANGE OF MOTION, BACK NONTENDER, FULL RANGE OF MOTION. EXTREMITIES: NONTENDER, FULL RANGE OF MOTION. SKIN: COLOR PINK, DRY, NO TURGOR, NO RASH, NO LACERATIONS, NO ABRASIONS, NO CONTUSIONS. LYMPHATICS: DEFERRED. Results Laboratory and Microbiology Lab and Micro Result Laboratory Tests Test 08/09/24 08:16 08/09/24 08:18 Influenza Type A Antigen Negative For Type A Influenza Type B Antigen Negative For Type B SARS-CoV-2, RNA, NAAT NEGATIVE SARS CoV-2 White Blood Count 7.9 K/uL (4.8-10.8) Red Blood Count 3.60 MIL/uL (4.50-6.20) L Hemoglobin 13.1 g/dL (14.0-18.0) L Hematocrit 38.5 % (42-54) L Mean Corpuscular Volume 106.9 fL (79-99) H Mean Corpuscular Hemoglobin 36.4 pg (27.0-33.0) H Mean Corpuscular Hemoglobin Concent 34.0 g/dL (32.0-36.0) Red Cell Distribution Width 13.9 % (11.0-15.5) Platelet Count 221 K/uL (130-400) Mean Platelet Volume 9.3 fL (7.5-10.5) Immature Granulocyte % (Auto) 0.6 % (0-1) Neutrophils (%) (Auto) 78.0 % (40.0-77.0) H Lymphocytes (%) (Auto) 12.6 % (21.0-51.0) L Monocytes (%) (Auto) 6.4 % (3.0-13.0) Eosinophils (%) (Auto) 1.9 % (0.0-8.0) Basophils (%) (Auto) 0.5 % (0.0-5.0) Neutrophils # (Auto) 6.2 K/uL (1.8-7.7) Lymphocytes # (Auto) 1.0 K/uL (1.0-4.8) Monocytes # (Auto) 0.5 K/uL (0.1-1.0) Eosinophils # (Auto) 0.15 K/uL (0.00-0.70) Basophils # (Auto) 0.04 K/uL (0.00-0.20) Absolute Immature Granulocyte (auto 0.05 K/uL (0-1) Nucleated Red Blood Cells 0.0 % (0.0-0.19) Red Blood Cell Morphology See comments Prothrombin Time 12.7 SEC (9.6-11.6) H Prothromb Time International Ratio 1.22 (0.85-1.15) H Activated Partial Thromboplast Time 36.9 SEC (26.3-35.5) H Sodium Level 136 mmol/L (136-145) Potassium Level 3.6 mmol/L (3.5-5.1) Chloride Level 94 mmol/L (101-111) L Carbon Dioxide Level 32 mmol/L (21-32) Blood Urea Nitrogen 17 mg/dL (7-18) Creatinine 4.7 mg/dL (0.5-1.3) H Glomerular Filtration Rate Calc 12 mL/min (>90) Random Glucose 96 mg/dL (70-105) Total Calcium 9.4 mg/dL (8.5-10.1) Magnesium Level 1.80 mg/dL (1.80-2.40) Total Creatine Kinase 37 U/L (21-232) # Troponin I High Sensitivity 16 ng/L (4-75) B-Type Natriuretic Peptide 1790 pg/mL (0-100) H Labs Reviewed?: Yes EKG/XRAY/US/CT/MRI EKG Comment 08/09/2024 TIME 8:24 A.M. VENTRICULAR RATE [address] WAVE ELEVATION OR DEPRESSION X-RAY Comment [address] [place] [address] IMAGING REPORT Signed PATIENT: ARLIN BENTON MR#: [id number] : 1950 SEX: M AGE: 73 LOCATION: [facility] ORDER 4 STATUS: REG ER REPORT#: [id number] SERVICE 3 REASON: sob ORDERING PHYSICIAN: JERRY ZAMORA MD PROCEDURE: CXR1VW - CHEST 1VW CHEST 1VW HISTORY: Shortness of breath COMPARISON: None FINDINGS: A frontal projection of the chest was obtained. There are bilateral pulmonary infiltrates suggestive of pulmonary vascular congestion with possible superimposed pneumonitis. There is right pleural effusion. The heart is borderline enlarged. Degenerative changes are seen. Artery calcifications are seen. IMPRESSION: 1. Bilateral pulmonary infiltrates are seen suggestive of pulmonary vascular congestion with possible superimposed pneumonitis. DICTATED BY: CHALO FAIRBANKS MD DATE: 08/09/24949 ELECTRONICALLY SIGNED BY: CHALO FAIRBANKS MD DATE: 08/09/24952 [facility] MDM: Differential diagnosis: Shortness of breath, pulmonary congestion, history of end-stage renal disease Rationale: Tests considered and ordered secondary to shared decision making include: labs, ECG and radiology Previous outside records reviewed: Old ER visits. Risk of complication and/or morbidity or mortality of patient management: None Medications-Per medication reconciliation Need for hospitalization: Patient does meet criteria for hospitalization. Need for emergency major/minor surgery: No There are no social concerns with this patient. Prescription drug management Prescriptions will include symptomatic care Patient's prior external medical records from other ER visits were reviewed by me as indicated. Prior testing and results from previous visits were reviewed. Prior tests were taken into account with medical decision making and resource utilization, independent historian/historians were used to obtain complete medical history. I independently interpreted the test that were performed, results were reviewed by me and considered findings on radiology if ordered. Medical management and examination interpretation discussions were had by me with other qualified healthcare professionals as indicated for the patient's care. Patient will be admitted under the care of Dr. Gordon for ongoing management of pulmonary congestion secondary to end-stage renal disease requiring dialysis. ED Course Orders Procedure Category Date Status Time Cbc With Differential LAB 08/09/24 Complete 08:04 Prothrombin Time With LAB 08/09/24 Complete INR 08:04 B-Type Natriuretic LAB 08/09/24 Complete Peptide 08:04 Chest 1vw RAD 08/09/24 Resulted 08:04 12 Lead Ekg Tracing- EKG 08/09/24 Resulted Technical 08:04 Magnesium LAB 08/09/24 Complete 08:04 Creatine Kinase, Total LAB 08/09/24 Complete 08:04 Troponin I High LAB 08/09/24 Complete Sensitivity 08:04 Urinalysis Profile LAB 08/09/24 Logged 08:04 Partial LAB 08/09/24 Complete Thromboplastin Time 08:04 Basic Metabolic Panel LAB 08/09/24 Complete 08:04 Influenza Type A & B, LAB 08/09/24 Complete Rapid 08:04 Covid Rna Naat LAB 08/09/24 Complete 08:04 Vital Signs Date Time Temp Pulse Resp B/P (MAP) Pulse Ox O2 Delivery O2 Flow Rate FiO2 08/09/24 13:34 65 20 177/65 98 Nasal Cannula* 2 28 08/09/24 10:50 65 18 161/65 98 Nasal Cannula* 2 28 08/09/24 09:21 59 12 171/70 98 Nasal Cannula* 2 28 08/09/24 08:27 70 17 184/70 97 Nasal Cannula* 2 08/09/24 07:59 97.9 75 18 179/72 91 Room Air 0 Critical Care Note Comments Critical Care Procedure Note Authorized and Performed by: me Total critical care time: Approximately 36 minutes Due to a high probability of clinically significant, life threatening deterioration, the patient required my highest level of preparedness to intervene emergently and I personally spent this critical care time directly and personally managing the patient. This critical care time included obtaining a history; examining the patient; pulse oximetry; ordering and review of studies; arranging urgent treatment with development of a management plan; evaluation of patient's response to treatment; frequent reassessment; and, discussions with other providers. This critical care time was performed to assess and manage the high probability of imminent, life-threatening deterioration that could result in multi-organ failure. It was exclusive of separately billable procedures and treating other patients and teaching time. Please see MDM section and the rest of the note for further information on patient assessment and treatment. DX & DISP Disposition: Inpatient Decision to Admit Time: 13:50 Departure Impression: Primary Impression: Pulmonary congestion Additional Impressions: End-stage renal disease needing dialysis, History of atrial fibrillation Condition: Stable Referrals: PHILIP HANLEY MD (PCP) JERRY ZAMORA MD Aug 09, 2024 10:50
[2024-08-09] MEDS ORDERED: GLUCAGON 1MG KIT 1 MG ML IM PRN (14:00)
[2024-08-09] MEDS ORDERED: acetaMINOPHEN 325 MG TAB PO PRN (14:00)
[2024-08-09] MEDS ORDERED: DEXTROSE 50%-WATER 50 ML DISP.SYRIN IV PRN (14:00)
[2024-08-09] MEDS ORDERED: ondanSETRON 4MG INJ IVP PRN (14:00)
[2024-08-09] MEDS: HEParin 5,000 UNIT VIAL SQ SCH (14:11)
--- NOTE | 2024-08-09 15:03 | NUR ---
CARDIOLOGY CONSULT: ATA POOL WITH HEART CLINIC AT BEDSIDE
[2024-08-09 16:00] VITALS: BP 164/65; PULSE 68; RESP 20; TEMP 97.5
[2024-08-09 16:04] VITALS: O2SAT 97
--- NOTE | 2024-08-09 16:24 | CONS ---
[facility] CARDIOLOGY CONSULTATION REPORT Cardiology consultation note dictated for Katalina Gaston MD Primary timers inspector: Alison Thomas MD Date Patient Seen: Aug 09, 2024 Requesting Physician: Jose Gordon MD Reason for Consultation: CHF History of Present Illness: This is a 73-year-old male with a past medical history of HTN, HLD, persistent atrial fibrillation on chronic AC with Xarelto s/p post DC cardioversion to sinus rhythm by Dr. Ocasio 10/19/2021, s/p successful ablation due to atypical atrial flutter by Dr. Ocasio on 05/10/2022, severe pulmonary hypertension, moderate bilateral carotid stenosis, PVD with stent to the RLE in 2013, chronic venous insufficiency s/p endovascular vein ablation, GERD, coronary artery disease ([facility] 04/19/2020 revealed 40% stenosis of the RCA), chronic cough, recently on home o2 for about 2 months, ESRD HD MWF, and hypotension during dialysis sessions who presented to the ED with complaints of chest pressure and shortness of breath since 0400. The patient was dialyzed for only 2 hours and was sent to the ED due to continued chest pressure. He states he had 1.6L removed in HD. Cardiology has been consulted for congestive heart failure. The patient admits to sleeping in a recliner for two weeks, dyspnea on exertion, and a chronic dry cough that worsened this morning at 0400 when he also began to experience left- sided chest pressure. The discomfort has been constant with a 6/10 intensity. Symptoms worsened with exertion and were not relieved with oxygen or alprazolam. CTA chest on 08/03/2024 possible aspirated barium due to hyperdense material seen in the RLL, interstitial fibrosis with bronchiectasis, Large right pleural effusion is seen, Tiny left pleural effusion, and tiny pericardial effusion is seen. BNP was 1790. Past Medical History: Increased velocities in the right subclavian artery at 100mm pressure between left and right arm Pulmonary hypertension: -2D Echo on 06/01/2024 with and EF of 50-55%, grade 2 diastolic dysfunction, severe TR, RSVP 129mmHg -2D Echo on 12/31/2023 EF 55-60% with mild to mod TR, and severe pulm HTN at 73mmHg -2D Echo in 06/2022 RVSP of 53.9mmHg HTN, HLD, persistent atrial fibrillation on chronic AC with Xarelto s/p post DC cardioversion to sinus rhythm by Dr. Ocasio 10/19/2021, s/p successful ablation due to atypical atrial flutter by Dr. Ocasio on 05/10/2022, moderate bilateral carotid stenosis in 09/2023 via carotid flow studies, PVD with stent to the RLE in 2013, chronic venous insufficiency s/p endovascular vein ablation, GERD, coronary artery disease ([facility] 04/19/2020 revealed 40% stenosis of the RCA), chronic cough, recently on home o2 ESRD HD MWF Past Surgical History: [ ] Family History: [ ] Social History: [ ] Habits: [Never] smoker. [Denies] alcohol consumption. [Denies] illicit drug use Current Meds: Current Medications Insulin Human Regular INSULIN SLIDING SCAL... ACHS SQ; Start 08/09/24 at 16:30; Stop 09/08/24 at 16:29 Dextrose 50 ml AD PRN IV; Start 08/09/24 at 14:00; Stop 09/08/24 at 13:59 Glucagon 1 mg AD PRN IM; Start 08/09/24 at 14:00; Stop 09/08/24 at 13:59 Heparin Sodium (Porcine) 5,000 unit Q12H SQ Last administered on 08/09/24at 14:11; Start 08/09/24 at 14:00; Stop 09/08/24 at 13:59 Acetaminophen 650 mg Q6H PRN PO; Start 08/09/24 at 14:00; Stop 09/08/24 at 13:59 Ondansetron HCl 4 mg Q6H PRN IVP; Start 08/09/24 at 14:00; Stop 09/08/24 at 13:59 Review of Systems: 10 point ROS as noted above, otherwise negative. Physical Examination: GENERAL: No acute distress. HEAD: Normal with no signs of head trauma. EYES: EOMI, conjunctiva and sclera normal. ENT: Hearing grossly intact, normal oropharynx. NECK: Supple without JVD. Normal carotid upstrokes without bruits. LUNGS: Right base diminished, and left lower base with crackles. HEART: Normal rate and rhythm. Normal S1 and S2 without murmurs, gallop or rub. VASC: Peripheral pulses +2 bilaterally. ABD: Bowel sounds normal, soft, nontender. No audible bruits. EXT: No clubbing, cyanosis or edema. SKIN: No rashes or lesions noted. NEURO: Awake, alert, and oriented x3. No focal sensory or strength deficits noted. Vital Signs (last 8hr) Date Time Temp Pulse Resp B/P (MAP) Pulse Ox O2 Delivery O2 Flow Rate FiO2 08/09/24 13:34 65 20 177/65 98 Nasal Cannula* 2 28 08/09/24 10:50 65 18 161/65 98 Nasal Cannula* 2 28 08/09/24 09:21 59 12 171/70 98 Nasal Cannula* 2 28 08/09/24 08:27 70 17 184/70 97 Nasal Cannula* 2 28 08/09/24 07:59 97.9 75 18 179/72 91 Room Air 0 Laboratory: Laboratory Tests Test 08/09/24 08:16 08/09/24 08:18 Influenza Type A Antigen Negative For Type A Influenza Type B Antigen Negative For Type B SARS-CoV-2, RNA, NAAT NEGATIVE SARS CoV-2 White Blood Count 7.9 K/uL (4.8-10.8) Red Blood Count 3.60 MIL/uL (4.50-6.20) L Hemoglobin 13.1 g/dL (14.0-18.0) L Hematocrit 38.5 % (42-54) L Mean Corpuscular Volume 106.9 fL (79-99) H Mean Corpuscular Hemoglobin 36.4 pg (27.0-33.0) H Mean Corpuscular Hemoglobin Concent 34.0 g/dL (32.0-36.0) Red Cell Distribution Width 13.9 % (11.0-15.5) Platelet Count 221 K/uL (130-400) Mean Platelet Volume 9.3 fL (7.5-10.5) Immature Granulocyte % (Auto) 0.6 % (0-1) Neutrophils (%) (Auto) 78.0 % (40.0-77.0) H Lymphocytes (%) (Auto) 12.6 % (21.0-51.0) L Monocytes (%) (Auto) 6.4 % (3.0-13.0) Eosinophils (%) (Auto) 1.9 % (0.0-8.0) Basophils (%) (Auto) 0.5 % (0.0-5.0) Neutrophils # (Auto) 6.2 K/uL (1.8-7.7) Lymphocytes # (Auto) 1.0 K/uL (1.0-4.8) Monocytes # (Auto) 0.5 K/uL (0.1-1.0) Eosinophils # (Auto) 0.15 K/uL (0.00-0.70) Basophils # (Auto) 0.04 K/uL (0.00-0.20) Absolute Immature Granulocyte (auto 0.05 K/uL (0-1) Nucleated Red Blood Cells 0.0 % (0.0-0.19) Red Blood Cell Morphology See comments Prothrombin Time 12.7 SEC (9.6-11.6) H Prothromb Time International Ratio 1.22 (0.85-1.15) H Activated Partial Thromboplast Time 36.9 SEC (26.3-35.5) H Sodium Level 136 mmol/L (136-145) Potassium Level 3.6 mmol/L (3.5-5.1) Chloride Level 94 mmol/L (101-111) L Carbon Dioxide Level 32 mmol/L (21-32) Blood Urea Nitrogen 17 mg/dL (7-18) Creatinine 4.7 mg/dL (0.5-1.3) H Glomerular Filtration Rate Calc 12 mL/min (>90) Random Glucose 96 mg/dL (70-105) Total Calcium 9.4 mg/dL (8.5-10.1) Magnesium Level 1.80 mg/dL (1.80-2.40) Total Creatine Kinase 37 U/L (21-232) # Troponin I High Sensitivity 16 ng/L (4-75) B-Type Natriuretic Peptide 1790 pg/mL (0-100) H Hematology Labs: Test 08/09/24 08:18 Range/Units White Blood Count 7.9 4.8-10.8 K/uL Red Blood Count 3.60 L 4.50-6.20 MIL/uL Hemoglobin 13.1 L 14.0-18.0 g/dL Hematocrit 38.5 L 42-54 % Mean Corpuscular Volume 106.9 H 79-99 fL Mean Corpuscular Hemoglobin 36.4 H 27.0-33.0 pg Mean Corpuscular Hemoglobin Concent 34.0 32.0-36.0 g/dL Red Cell Distribution Width 13.9 11.0-15.5 % Platelet Count 221 130-400 K/uL Mean Platelet Volume 9.3 7.5-10.5 fL Immature Granulocyte % (Auto) 0.6 0-1 % Neutrophils (%) (Auto) 78.0 H 40.0-77.0 % Lymphocytes (%) (Auto) 12.6 L 21.0-51.0 % Monocytes (%) (Auto) 6.4 3.0-13.0 % Eosinophils (%) (Auto) 1.9 0.0-8.0 % Basophils (%) (Auto) 0.5 0.0-5.0 % Neutrophils # (Auto) 6.2 1.8-7.7 K/uL Lymphocytes # (Auto) 1.0 1.0-4.8 K/uL Monocytes # (Auto) 0.5 0.1-1.0 K/uL Eosinophils # (Auto) 0.15 0.00-0.70 K/uL Basophils # (Auto) 0.04 0.00-0.20 K/uL Absolute Immature Granulocyte (auto 0.05 0-1 K/uL Nucleated Red Blood Cells 0.0 0.0-0.19 % Red Blood Cell Morphology See comments Chemistry Labs: Test 08/09/24 08:18 Range/Units Sodium Level 136 136-145 mmol/L Potassium Level 3.6 3.5-5.1 mmol/L Chloride Level 94 L 101-111 mmol/L Carbon Dioxide Level 32 21-32 mmol/L Blood Urea Nitrogen 17 7-18 mg/dL Creatinine 4.7 H 0.5-1.3 mg/dL Glomerular Filtration Rate Calc 12 >90 mL/min Random Glucose 96 70-105 mg/dL Total Calcium 9.4 8.5-10.1 mg/dL Magnesium Level 1.80 1.80-2.40 mg/dL Total Creatine Kinase 37 # 21-232 U/L Troponin I High Sensitivity 16 4-75 ng/L B-Type Natriuretic Peptide 1790 H 0-100 pg/mL Coagulation Labs: Test 08/09/24 08:18 Range/Units Prothrombin Time 12.7 H 9.6-11.6 SEC Prothromb Time International Ratio 1.22 H 0.85-1.15 Activated Partial Thromboplast Time 36.9 H 26.3-35.5 SEC Impression and Plan: Shortness of breath Acute on chronic HFpEF ESRD on HD Chronic hypoxemic respiratory failure, on home O2 Pulmonary hypertension Interstitial fibrosis with Bronchiectasis Pleural effusion Persistent AFib on chronic AC Coronary artery disease, non obstructive by prior [facility] Carotid artery disease, moderate Patient anuric. Unlikely to benefit from increased diuretics usage, therefore recommend continued fluid removal via dialysis. In regards to his HFPEF GDMT, we are limited in most GDMT due to his impaired renal dysfunction as well as episodes of hypotension. Continue his beta anurag (toprol 50mg q daily). His shortness of breath may be of combined etiology with his underlying HFPEF as well as markedly elevated pulmonary pressures. His most recent echocardiogram shows RVSP >100 with severe TR, which shows progression as compared to prior studies. Outpatient referral to pulmonology was recently made. ATA MONTGOMERY [facility] Aug 09, 2024 16:24
[2024-08-09] MEDS: INSULIN humuLIN R 100 UNIT/ML 3ML SQ SCH (16:30)
[2024-08-09] MEDS ORDERED: METO-408 PO (18:56)
[2024-08-09] MEDS ORDERED: AZEL137S11 NS (18:56)
[2024-08-09] MEDS ORDERED: FOLI0.8T22 PO (18:56)
[2024-08-09] MEDS ORDERED: NITR0.4T50 SL (18:56)
[2024-08-09] MEDS ORDERED: LORA-997 PO (18:56)
[2024-08-09 20:13] VITALS: BP 155/66; PULSE 70; RESP 18; TEMP 97.9
[2024-08-09] MEDS: atorVAStatin 20 MG TABLET PO SCH (20:25)
[2024-08-10] VITALS (25 sets, daily range): BP systolic 125–175; BP diastolic 52–77; PULSE 63–80; RESP 16–20; TEMP 97.5–98.3; O2SAT 93–97
--- NOTE | 2024-08-10 05:12 | HP ---
DATE OF SERVICE: 08/09/2024 PRESENTING COMPLAINT: Shortness of breath and chest pressure. HISTORY OF PRESENT ILLNESS: This is a 73-year-old male with history of ESRD, on dialysis; diastolic heart failure; hypertension who was brought to the Emergency Room with chest pressure and shortness of breath. The patient's symptoms started while on dialysis center. The patient received 2 hours of dialysis with 1.6 liters removed. The patient claims he has been having shortness of breath for a few weeks. The patient also complained of orthopnea and PND. No palpitation. The patient's chest x-ray shows pulmonary congestion. The patient has end-stage renal disease and still able to urinate once or twice a day. BNP is elevated at 1790. The patient will follow up with the [facility]. A 2D echocardiogram done in May this year showed EF of 50-55% with stage 2 diastolic dysfunction. PAST MEDICAL HISTORY: * ESRD, on dialysis. * Hypertension. * Atrial fibrillation, on anticoagulation. * Dyslipidemia. * Pulmonary hypertension. * Peripheral vascular disease. * Coronary artery disease. PAST SURGICAL HISTORY: * DC cardioversion. * Cardiac ablation. * Stenting of lower extremities. * Cardiac catheterization. * Vein ablation to the extremities. ALLERGIES: No known drug allergy. HOME MEDICATIONS: Reviewed. SOCIAL HISTORY: The patient lives with . No alcohol, tobacco or illicit drug use. FAMILY HISTORY: Noncontributory. REVIEW OF SYSTEMS: CONSTITUTIONAL: No fever or chills. No weight loss or night sweats. EYES: No eye pain. No photophobia or diplopia. HENT: No sore throat. No rhinorrhea or earache. NECK: No neck pain or neck swelling. RESPIRATORY: Positive for cough. No hemoptysis or pleuritic pain. CARDIOVASCULAR: No chest pain. Positive for shortness of breath, orthopnea and PND. No palpitation. GASTROINTESTINAL: No nausea, vomiting or abdominal pain. GENITOURINARY: No dysuria, no urgency, no urinary frequency. CENTRAL NERVOUS SYSTEM: No headache, dyspnea, or slurred speech. PSYCHIATRY: No depression. No suicidal ideation. MUSCULOSKELETAL: No joint pain or joint swelling. PHYSICAL EXAMINATION: GENERAL: Elderly male, awake. VITAL SIGNS: Temperature 98.4, pulse 72, respiratory rate 24. EYES: No icterus. Pupils equal and reactive. HENT: No oral thrush seen. Moist oral mucosa. NECK: Supple. No JVD or thyromegaly. LUNGS: Crackles bilaterally. No rhonchi. CARDIOVASCULAR SYSTEM: S1, S2 regular. No murmur heard. ABDOMEN: Full, soft, nontender. Bowel sounds are present. CENTRAL NERVOUS SYSTEM: The patient is awake, alert, oriented x 3. No focal deficits. SKIN: No rashes. No itchiness. LYMPHATIC: No peripheral lymphadenopathy. BACK: No deformity, no pressure ulcer. LABORATORY DATA: BNP 1790. Sodium 136, potassium 3.6, BUN 17, creatinine 4.7. WBC 7.9, hemoglobin 13.1, platelet 221. RADIOLOGY: Chest x-ray shows bilateral pulmonary congestion. ASSESSMENT: A 73-year-old male presented with cough, shortness of breath and chest pressure. Current problems include: * [id number] diastolic heart failure. * Hypoxic respiratory failure, on home oxygen. * Atrial fibrillation, on anticoagulation. * End-stage renal disease, on dialysis. * Hypertension. * Debility. PLAN: * The patient admitted to medical floor with telemetry. * Troponin will be trended. * The patient will be placed on oxygen. * Cardiology evaluation. * Nephrology evaluation for dialysis. * Home medications will be reconciled. * Cardiac diet. * Monitor electrolytes and correct as needed. TID: [id number] RECEIPT: [id number]
[2024-08-10 05:39] LABS: HEMATOCRIT 30.1 % (42-54); MEAN CORPUSCULAR HEMOGLOBIN 36.6 pg (27.0-33.0); MEAN CORPUSCULAR HGB CONC 33.9 g/dL (32.0-36.0); MEAN CORPUSCULAR VOLUME 107.9 fL (79-99); RED BLOOD CELL COUNT(AUTO) 2.79 MIL/uL (4.50-6.20); RED CELL DISTRIBUTION WIDTH 14.1 % (11.0-15.5); WHITE BLOOD COUNT (AUTO) 7.6 K/uL (4.8-10.8)
[2024-08-10 05:44] LABS: CREATININE 6.1 mg/dL (0.5-1.3); MAGNESIUM 1.8 mg/dL (1.80-2.40); POTASSIUM 4.6 mmol/L (3.5-5.1)
--- NOTE | 2024-08-10 08:45 | CONS ---
NEPHROLOGY CONSULTATION REASON FOR CONSULTATION: End-stage renal disease, on chronic hemodialysis. HISTORY OF PRESENT ILLNESS: The patient is a 73-year-old male with a history of end-stage renal disease, on hemodialysis every Friday, Friday and Friday, atrial fibrillation, hypertensive heart disease, hyperlipidemia, hypoxia, currently on supplemental oxygen, who presents for evaluation for chest pressure. The patient has been adherent with his dialysis treatments. Reports Friday evening prior to his morning dialysis treatment, began with left-sided chest pressure. Pressure remained constant. No nausea, no vomiting. Continued with treatment during dialysis, treatment had to be discontinued early. The patient was referred to the ER for further evaluation. Labs revealed normal cardiac enzymes with an elevated BNP of 1790 and imaging consistent with acute pulmonary edema. Nephrology has been consulted to assist with management of hemodialysis during hospitalization, was evaluated this morning. Denies any further chest pressure. REVIEW OF SYSTEMS: CONSTITUTIONAL: Denies any fevers or chills. EYES: Denies any change into his vision. EARS: Denies any ear pain or discharge. NOSE AND THROAT: No congestion or sore throat. PULMONARY: Cough, wheezing, shortness of breath. CARDIOVASCULAR: Chest pressure as per HPI. GASTROINTESTINAL: Denies any abdominal pain, nausea, or vomiting. MUSCULOSKELETAL: Denies any erythematous joints or swollen joints. GENITOURINARY: Denies any gross hematuria or dysuria. HEMATOLOGY: Denies any acute blood loss. NEUROLOGIC: Denies any focal weakness or syncope. PSYCHIATRIC: Denies anxiety or depression. PAST MEDICAL HISTORY: End-stage renal disease, on chronic hemodialysis, hyperlipidemia, asthma, anxiety, GERD, allergies, atrial fibrillation, hypertension, hypertensive heart disease, peripheral vascular disease, remote history of tobacco use. PAST SURGICAL HISTORY: Peripheral vascular disease, status post PCI, left AV fistula. FAMILY HISTORY: Positive for coronary artery disease, hypertension. SOCIAL HISTORY: Remote history of smoking more than 30 years ago. No alcohol use. ALLERGIES: No known drug allergies. CURRENT MEDICATIONS: Have been reviewed. PHYSICAL EXAMINATION: CURRENT VITAL SIGNS: Temperature is 98.2, pulse 76, blood pressure 167/71, respiratory rate is 19, satting 94%, currently on 2 liters nasal cannula. GENERAL: The patient is resting comfortably. He is awake. He is alert, on supplemental oxygen. HEENT: Anicteric sclerae. NECK: Supple. CARDIAC: Regular rhythm and rate. CHEST: Diminished breath sounds, scattered wheezing, rales at bases. ABDOMEN: Soft, nontender. EXTREMITIES: Trace edema. LABORATORY DATA: Sodium 135, potassium 4.6, chloride 101, bicarbonate is 32, BUN is 28, creatinine is 6.1, glucose 94. Magnesium is 1.8. White count is 7.6, hemoglobin 10.2, hematocrit 30.1, platelet count is 168. ASSESSMENT: * End-stage renal disease, on chronic hemodialysis. * Hyponatremia. * Acute pulmonary edema. * Acute on chronic diastolic heart failure. * Pulmonary hypertension. * Chronic hypoxic respiratory failure, on supplemental oxygen. * Atrial fibrillation. * Coronary artery disease. * Peripheral vascular disease. * Anemia of chronic kidney disease. PLAN: * End-stage renal disease. We will plan for additional treatment today for more aggressive ultrafiltration as tolerated, 2-hour treatment, 2 liters as tolerated, 2K bath, 2.5 calcium bath, 300 blood flow rate, 600 dialysate flow rate. The patient will resume normal treatments again tomorrow and continue Friday, Friday, Friday during hospitalization. Renal diet, fluid restriction 1 liter. * Hyponatremia. Ultrafiltration with hemodialysis today. Fluid restriction 1 liter. * Acute pulmonary edema, UF 2 liters as tolerated today. Plan to dialyze again tomorrow for more aggressive ultrafiltration as tolerated. Continue fluid restriction. * Acute on chronic diastolic dysfunction. Cardiology following. Ultrafiltration as tolerated by dialysis. * Pulmonary hypertension. The patient has been referred to Pulmonary in the outpatient setting. * Chronic hypoxic respiratory failure. Remains on supplemental oxygen. * Anemia of chronic kidney disease. Hold erythropoietin at this time given stable labs. TID: [id number] RECEIPT: [id number]
[2024-08-10] MEDS: PANTOPrazole 40 MG TAB DR PO SCH (09:00)
[2024-08-10] MEDS: cloPIDOgrel 75MG TAB PO SCH (09:00)
[2024-08-10] MEDS: RIVAROXABAN 15 MG TABLET PO SCH (09:00)
[2024-08-10] MEDS: CYANOCOBALAMIN (VITAMIN B-12) 1,000 MCG TABLET PO SCH (09:00)
--- NOTE | 2024-08-10 09:06 | NUR ---
CHART REVIEWED, CALL TO MERCED CHAVEZ RE VITAL SIGNS, CONFIRMED PATIENT IS STILL ON 2L NASAL CANNULA @ THIS TIME
[2024-08-10] MEDS ORDERED: REGADENOSON 0.4 MG/5 ML PF SYG IVP ONE (09:30)
--- NOTE | 2024-08-10 09:56 | PN ---
PROBLEM LIST: * Chest discomfort and shortness of breath on presentation. * History of peripheral artery disease with remote right lower extremity percutaneous intervention. * Findings of significant right subclavian artery stenosis, being managed medically. * History of preserved left ventricular systolic function, EF of 50-55% with grade 2 diastolic dysfunction, severe tricuspid insufficiency and severe pulmonary hypertension with a right ventricular systolic pressure of 129 mmHg, 05/2024. * Hypertension, currently with marginal pressures. * Hyperlipoproteinemia. * History of persistent atrial fibrillation with chronic anticoagulation, status post DC cardioversion by Dr. Ocasio in 10/2021, followed by successful ablation of atypical atrial flutter in 05/2022. * Findings of mild to moderate bilateral carotid stenosis by carotid flow studies in 09/2023. * Chronic venous insufficiency with remote endovascular vein ablation. * History of GERD. * History of coronary artery disease with cardiac catheterization in 04/2020, identifying 40% stenosis of the RCA. * History of interstitial pulmonary fibrosis and bronchiectasis with chronic respiratory failure, on home O2. * End-stage renal disease, currently on hemodialysis. * Anemia due to renal failure. This gentleman was hospitalized because he had symptoms of chest discomfort, described as tightness, radiating to the left shoulder and to the base of the neck. The patient stated that he has significant shortness of breath and was evaluated by the primary care team and his piledriver carpenter, Dr. Donna Jacobs. He was also assessed by the Cardiothoracic team. It was important to note that the patient had a CT of the chest on 08/03/2024, identifying possible barium aspiration with hyperdense material seen in the right lower extremity with concomitant interstitial fibrosis and bronchiectasis with a large right pleural effusion and a tiny left pleural effusion. On assessing the patient this morning, he states that he is feeling fine. He has not had any additional episodes of chest discomfort, but continues to have some shortness of breath. The patient has had no other active cardiac symptoms at this time. Exam reveals stable vital signs. The patient has been afebrile. His heart rate is in the 70s and he appears to be in sinus rhythm. The blood pressure is slightly elevated at 155/75. He is saturating at 94% on 2 liters of nasal cannula. The patient has no obvious jugular venous distention. The lung exam is remarkable for decreased air entry at the right base with minimal scattered rhonchi and chronic crackles in both lung mcmillan. The cardiac exam is remarkable for a 2/6 systolic ejection murmur at the left sternal border. There are no diastolic murmurs, rubs, or gallops. The abdomen is soft and benign. The extremities are remarkable for 2+ edema with chronic stasis dermatitis changes. The patient's laboratory studies this morning reveal a white count of 7.6 with an H and H of 10.2 and 30.1 respectively, the current platelet count is 168,000. Chemistry reveals a sodium of 135, potassium 4.6, chloride is 101, CO2 is 32, BUN is 28, creatinine is 6.1 with GFR of 9. The patient's random glucose is 94. His total calcium is 8.8 and magnesium is 1.8. The patient had 2 troponin evaluations that were negative. The patient has been evaluated by us in the office recently because of symptoms of chest discomfort. We had scheduled a Lexiscan Cardiolite, which was supposed to be done this as an outpatient. The patient has had EKG that showed borderline QT changes with borderline prolongation. His amiodarone has been discontinued by our Cardiology team and Electrophysiology due to his underlying pulmonary disease. Today, I have recommended that we continue with dialysis sessions as per Donna Jacobs. The patient will likely require more dialysis sessions for now to remove his excess fluid. I am reluctant to consider pleural tap for thoracentesis on the right side, even through the patient has a sizable pleural effusion. In regards to the patient's symptoms of chest discomfort, I have recommended that we proceed with a Lexiscan Cardiolite here while he is in the hospital as opposed to ____ his home. We will continue to adjust his medications and await additional results from the testing performed. TID: [id number] RECEIPT: [id number]
[2024-08-10] MEDS ORDERED: PHARMACY COMMUNICATION 1 EACH EACH MISC SCH (12:30)
--- NOTE | 2024-08-10 12:37 | NUR ---
DCP -- Home Patient states he lives with Blanca Torres, Spouse [phone] in a house with a walk in shower. 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 States able to complete ADL's on his own. States he has a cane, a walker with a seat and shower chair. Denies home care provider. States [employer] supplies oxygen concentrator and small O2 tanks; requesting portable concentrator; referred to PCP for prescription. States zuniga attends [facility] Mondays, Wednesdays and Fridays for dialysis; [facility] doctor may increase number of dialysis days. PCP - Donna Jacobs MD Pharmacy - [facility], [facility]. Upon discharge, states Blanca Torres, Spouse [phone] and assist with care, as needed. Addendum: 08/10/24 at 1245 by TIFFANY ETIENNE RN CM Amended: Links added.
--- NOTE | 2024-08-10 13:20 | EKG ---
[facility] Test Date: 2024-08-10 Test Time: 12:51:29 Pat Name: ARLIN BENTON Department: [facility] Room: 314 1 Gender: M Parts Finisher: ALHAJI : 1950 Requested By: Calin BRADY Order Number: [id number] Reading MD: Dylan Lu Measurements Intervals [place] Rate: 70 P: -17 MI: 166 QRS: 6 QRSD: 94 T: 44 QT: 446 QTc: 481 Interpretive Statements Normal sinus rhythm Prolonged QT Compared to ECG 08/09/2024 08:24:57 Prolonged QT interval now present RSR' in V1 Electronically Signed On 08-11-2024 07:02:00 CDT by Dylan Lu Please click the below link to view image of tracing.
[2024-08-10] MEDS ORDERED: 0.9% NACL 250ML 250 ML IV SCH (14:00)
[2024-08-10] MEDS: 0.9%NACL 1000ML 1,000 ML IV SCH (14:00)
[2024-08-10] MEDS: IpraTROPium 0.5 MG/2.5 ML INH IH SCH (14:21)
--- NOTE | 2024-08-10 16:56 | PN ---
INFECTIOUS DISEASE PROGRESS NOTE Date of Service: Aug 10, 2024 SUBJECTIVE: This is a 73-year-old male patient who was seen and examined at bedside in room 314. Patient is awake, alert and oriented x3. Dialysis session in process at the time of visit. Patient is currently on oxygen support via nasal cannula 2 L/min. Patient reported that he is home O2 dependent as needed. PHYSICAL EXAM EYES: Anicteric. Pupils equal and reactive. HENT: No oral thrush seen, moist Oral mucosa NECK: Supple, no JVD or thyromegaly. LUNGS: Good air entry. Lung sounds diminished on auscultation. Oxygen support. CARDIOVASCULAR: S1, S2 regular. No murmur heard. ABDOMEN: Soft, non tender, bowel sounds present, no organomegaly CENTRAL NERVOUS SYSTEM: Awake, alert, oriented x 3. SKIN: No rashes, no swelling. LYMPHATICS: No peripheral lymphadenopathy MUSCULOSKELETAL: No joint swelling, erythema or tenderness. EXTREMITIES: No cyanosis or clubbing BACK: No deformity, no pressure ulcer. GENITOURINARY: No dysuria or hematuria. Vital Sign (Last 12 Hours) 08/10/24 08/10/24 08/10/24 08/10/24 06:52 08:00 08:30 11:00 Temp 97.7 Pulse 74 68 75 Resp 20 18 B/P (MAP) 157/77 156/64 Pulse Ox 97 97 O2 Delivery Room Air Nasal Cannula* N/Cannula Low lpm O2 Flow Rate 2 2.0 FiO2 28 28 08/10/24 08/10/24 08/10/24 08/10/24 12:00 13:00 13:25 13:40 Temp 97.9 97.5 97.5 Pulse 80 72 68 67 Resp 18 18 16 16 B/P (MAP) 125/55 146/58 140/52 166/61 Pulse Ox 92 O2 Delivery Nasal Cannula Room Air Nasal Cannula Nasal Cannula O2 Flow Rate 2.0 2.0 2.0 08/10/24 08/10/24 08/10/24 08/10/24 13:55 14:10 14:21 14:25 Pulse 63 69 73 68 Resp 16 16 18 16 B/P (MAP) 158/59 175/66 168/64 O2 Delivery Nasal Cannula Nasal Cannula Nasal Cannula O2 Flow Rate 2.0 2.0 2.0 08/10/24 08/10/24 08/10/2408/10/25 14:40 14:55 15:10 15:25 Pulse 67 67 68 69 Resp 16 16 16 16 B/P (MAP) 164/63 156/64 147/64 143/62 O2 Delivery Nasal Cannula Nasal Cannula Nasal Cannula Nasal Cannula O2 Flow Rate 2.0 2.0 2.0 2.0 LABS: Laboratory: Test 08/10/24 15:47 08/10/24 09:55 08/10/24 05:20 08/09/24 08:18 Range/Units Whole Blood Glucose 93 70-110 MG/DL Troponin I High Sensitivity 18 4-75 ng/L White Blood Count 7.6 4.8-10.8 K/uL Red Blood Count 2.79 #L 4.50-6.20 MIL/uL Hemoglobin 10.2 #L 14.0-18.0 g/dL Hematocrit 30.1 #L 42-54 % Mean Corpuscular Volume 107.9 H 79-99 fL Mean Corpuscular Hemoglobin 36.6 H 27.0-33.0 pg Mean Corpuscular Hemoglobin Concent 33.9 32.0-36.0 g/dL Red Cell Distribution Width 14.1 11.0-15.5 % Platelet Count 168 130-400 K/uL Mean Platelet Volume 9.9 7.5-10.5 fL Nucleated Red Blood Cells 0.0 0.0-0.19 % Sodium Level 135 L 136-145 mmol/L Potassium Level 4.6 3.5-5.1 mmol/L Chloride Level 101 101-111 mmol/L Carbon Dioxide Level 32 21-32 mmol/L Blood Urea Nitrogen 28 H 7-18 mg/dL Creatinine 6.1 H 0.5-1.3 mg/dL Glomerular Filtration Rate Calc 9 >90 mL/min Random Glucose 94 70-105 mg/dL Total Calcium 8.8 8.5-10.1 mg/dL Magnesium Level 1.80 1.80-2.40 mg/dL Immature Granulocyte % (Auto) 0.6 0-1 % Neutrophils (%) (Auto) 78.0 H 40.0-77.0 % Lymphocytes (%) (Auto) 12.6 L 21.0-51.0 % Monocytes (%) (Auto) 6.4 3.0-13.0 % Eosinophils (%) (Auto) 1.9 0.0-8.0 % Basophils (%) (Auto) 0.5 0.0-5.0 % Neutrophils # (Auto) 6.2 1.8-7.7 K/uL Lymphocytes # (Auto) 1.0 1.0-4.8 K/uL Monocytes # (Auto) 0.5 0.1-1.0 K/uL Eosinophils # (Auto) 0.15 0.00-0.70 K/uL Basophils # (Auto) 0.04 0.00-0.20 K/uL Absolute Immature Granulocyte (auto 0.05 0-1 K/uL Red Blood Cell Morphology See comments Prothrombin Time 12.7 H 9.6-11.6 SEC Prothromb Time International Ratio 1.22 H 0.85-1.15 Activated Partial Thromboplast Time 36.9 H 26.3-35.5 SEC Total Creatine Kinase 37 # 21-232 U/L B-Type Natriuretic Peptide 1790 H 0-100 pg/mL Test 08/09/24 08:16 Range/Units Influenza Type A Antigen Negative For Type A NEGATIVE Influenza Type B Antigen Negative For Type B NEGATIVE SARS-CoV-2, RNA, NAAT NEGATIVE SARS CoV-2 NEGATIVE ASSESSMENT: Acute hypoxic respiratory failure requiring oxygen support. Acute on chronic heart failure. End-stage renal disease, on dialysis. Atrial fibrillation on anticoagulation. Peripheral vascular disease. Hypertension. PLAN: Continue diuretics. Continue GI prophylaxis. Continue dialysis recommended by produce assistant. Continue oxygen support. Cardiology has evaluated patient. Continue on anticoagulation. Continue antiplatelets. We will monitor electrolytes and replace as needed. This case was reviewed and discussed with my supervising physician and the above assessment and plan was formulated and agreed upon. ATTESTATION BY PHYSICIAN I have seen and examined the patient. I reviewed the documentation, medical decision making, and treatment plan as noted by the mid-level provider above. I agree with the findings and plan of care. CATY FLOR MD, [facility] Aug 10, 2024 16:56
[2024-08-10] MEDS ORDERED: NITROGLYCERIN 0.4 MG SL TAB SL PRN (17:00)
[2024-08-10] MEDS: hydrALAZine 25MG TABLET PO PRN (17:17)
--- NOTE | 2024-08-10 17:59 | HMCSR ---
APPROVED REPORT Height: 6 ft 0in Weight: 190 lbs TEST INDICATIONS Possible Heart Failure The imaging protocol used to acquire images was Rest Tc-99m/stress Tc-99m 1 day Consent: The procedure was explained and understood by the patient. Informerd consent was witnessed Sahra Mccarthy RN First, low dose rest was performed then high dose stress. RESTING DATA: The resting ekg shows: NSR Rest SPECT myocardial perfusion imaging was performed in supine position minutes following the intra venous injection of 10.7 mCi of Tc-99 Sestamibi. Time of rest injection: 07:42: Date: 08/10/2024 PHARMACOLOGIC STRESS: Pharmacologic stress test was performed by injecting regadenoson 0.4 mg IV push followed by the intra venous injection of 27 mCi of Tc-99 Sestamibi. Time of stress injection: 09:35: Date: 08/10/2024 Heart Rate at time of stress injection: 66 bpm. Gated Stress SPECT was performed 60 minutes after stress injection. The images were gated to evaluate regional wall motion and calculate left ventricular ejection fracti on. STRESS DETAILS Reason for Termination: Infusion complete Stress Symptoms: Dyspnea Max HR Achieved: 81 bpm % of APMHR Achieved: 65 Max Blood Pressure: 172/63 mmHg Stress ECG: NSR Conclusion No ischemia No infarct LV ejection fraction 61% Normal LV wall motion Normal LV size at rest and stress No increased lung uptake
[2024-08-11 04:00] VITALS: BP 128/57; PULSE 72; RESP 18; TEMP 97.9
[2024-08-11 06:05] LABS: BASOPHILS # (AUTO) 0.03 K/uL (0.00-0.20); BASOPHILS % (AUTO) 0.5 % (0.0-5.0); EOSINOPHILS # (AUTO) 0.08 K/uL (0.00-0.70); EOSINOPHILS % (AUTO) 1.2 % (0.0-8.0); HEMATOCRIT 29.7 % (42-54); IMMATURE GRANULOCYTE ABSOLUTE 0.03 K/uL (0-1); LYMPHOCYTES # (AUTO) 0.7 K/uL (1.0-4.8); LYMPHOCYTES % (AUTO) 10.3 % (21.0-51.0); MEAN CORPUSCULAR HEMOGLOBIN 36.4 pg (27.0-33.0); MEAN CORPUSCULAR HGB CONC 34.3 g/dL (32.0-36.0); MEAN CORPUSCULAR VOLUME 106.1 fL (79-99); MONOCYTES # (AUTO) 0.8 K/uL (0.1-1.0); MONOCYTES % (AUTO) 12.3 % (3.0-13.0); NEUTROPHILS # (AUTO) 4.9 K/uL (1.8-7.7); NEUTROPHILS % (AUTO) 75.2 % (40.0-77.0); PLATELET COUNT (AUTO) 146 K/uL (130-400); RED CELL DISTRIBUTION WIDTH 13.7 % (11.0-15.5); WHITE BLOOD COUNT (AUTO) 6.5 K/uL (4.8-10.8)
[2024-08-11 06:44] LABS: B-TYPE NATRIURETIC PEPTIDE 1480 pg/mL (0-100)
[2024-08-11 06:45] LABS: CREATININE 5.2 mg/dL (0.5-1.3); MAGNESIUM 1.7 mg/dL (1.80-2.40); POTASSIUM 3.7 mmol/L (3.5-5.1)
[2024-08-11 07:02] VITALS: PULSE 100; RESP 18
[2024-08-11 07:05] VITALS: PULSE 100; RESP 18; O2SAT 94
--- NOTE | 2024-08-11 07:45 | PN ---
NEPHROLOGY FOLLOWUP NOTE INTERVAL HISTORY: The patient was evaluated this morning, underwent Lexiscan yesterday with no acute findings. Denies any further chest pain. Remains on supplemental oxygen. Did dialyze yesterday, 2 liters removed and tolerated it well. At this time, denies any fevers, chills, chest pain, focal weakness, abdominal pain, nausea, vomiting. He is requesting discharge home, has been unable to rest during hospitalization. PHYSICAL EXAMINATION: CURRENT VITAL SIGNS: Temperature 97.9, pulse 72, blood pressure 128/57, respiratory rate is 18, satting 93% on 2 liters nasal cannula. GENERAL: The patient is resting comfortably. He is alert. He is oriented. CARDIAC: Regular rhythm and rate. CHEST: Diminished breath sounds at bases. ABDOMEN: Soft, nontender. EXTREMITIES: Trace edema. LABORATORY DATA: White count is 6.5, hemoglobin 10.2, hematocrit 29.7, platelet count is 146. Sodium is 136, potassium is 3.7, chloride 99, bicarbonate is 29, BUN is 25, creatinine is 5.2. Magnesium is 1.7. ASSESSMENT: * End-stage renal disease, on chronic hemodialysis. * Hyponatremia. * Acute pulmonary edema. * Acute on chronic diastolic heart failure. * Atrial fibrillation, atrial flutter. * Pulmonary hypertension. * Chronic hypoxic respiratory failure, on home supplemental oxygen. * Coronary artery disease. * Peripheral vascular disease. * Anemia of chronic kidney disease. PLAN: * End-stage renal disease. The patient will dialyze again. Resume outpatient schedule Friday, Friday and Friday, 300 blood flow rate, 600 dialysate flow rate, UF 2 liters as tolerated, 3K bath, 2.5 calcium bath. Renal diet, fluid restriction. * Hyponatremia. Trend labs. Continue fluid restriction and routine dialysis. Continue with ultrafiltration with dialysis. * Acute pulmonary edema, clinically improving. Plan for additional 2 liters again today as tolerated with routine dialysis. Continue fluid restriction. * Acute on chronic diastolic dysfunction. Again, has been tolerating more aggressive ultrafiltration, we will continue. Plan for 2 liters again today. Fluid restriction. Lexiscan completed and no acute findings. Has been cleared for discharge by Cardiology. TID: [id number] RECEIPT: [id number]
[2024-08-11 07:47] LABS: HEPATITIS B CORE AB TOTAL Non-Reactive (Nonreactive); HEPATITIS B SURFACE ANTIBODY Negative (Reactive); HEPATITIS B SURFACE ANTIGEN Non-Reactive (Nonreactive); HEPATITIS C ANTIBODY Non-Reactive (Nonreactive)
[2024-08-11 08:00] VITALS: BP 97/51; PULSE 102; RESP 20; TEMP 97.9
[2024-08-11] MEDS: metOPROLol sucCINATE 25 MG TAB.SR.24H PO SCH (09:00)
--- NOTE | 2024-08-11 09:45 | NUR ---
HYPOTENSIVE; PER - HOLD HD TX TODAY D/T LOW BP READINGS PRIOR TO HD (83/46 HR 94 81/44 HR 108). HOLD HYDRALAZINE FOR TODAY & IF BP'S STABILIZE MAY D/C PT FROM NEPHROLOGY STANDPOINT. ALSO, PT TO F/U W/OP CLINIC ([facility]) TOMORROW.
--- NOTE | 2024-08-11 10:00 | NUR ---
hEMODIALISIS NOT COMPLETESD The patient did not tolerate HD due to hypotension. The patient voiced wanting to go home. This engineering writer called Dr. Tracy from cardiology and is cleard for discharge. This engineering writer called the office of Dr Covarrubias and this engineering writer was notifed that he would get a call back to see if the patient was cleard for discharge from nephrology.
--- NOTE | 2024-08-11 10:40 | PN ---
PROBLEM LIST: * Chest discomfort with shortness of breath on presentation. * History of peripheral vascular disease with remote right lower extremity percutaneous intervention. * Significant right subclavian artery stenosis, being managed medically due to absence of symptoms. * Preserved left ventricular systolic function by echocardiography with an EF of 55% with grade 2 diastolic dysfunction with ____ severe tricuspid insufficiency and severe pulmonary hypertension with right ventricular systolic pressure of 129, 05/2024. * Hypertension with marginal pressures previously, currently stable. * Hyperlipoproteinemia. * History of paroxysmal atrial fibrillation, on chronic anticoagulation, status post DC cardioversion in 10/2021, followed atypical atrial flutter ablation in 05/[address] Sweeney. * Findings of mild to moderate bilateral carotid stenosis by carotid flow studies in 09/2023. * Chronic venous insufficiency with remote endovascular vein ablation. * History of gastroesophageal reflux disease. * History of coronary artery disease by cardiac catheterization with nonobstructive lesions, 40% RCA stenosis, 04/2020. * History of interstitial pulmonary fibrosis and bronchiectasis with chronic respiratory failure, on home O2 with pleural effusion. * End-stage renal disease, currently on hemodialysis. * Anemia, multifactorial, of chronic disease. * Negative Lexiscan Cardiolite for infarct or ischemia with preserved LV function on this admission. This patient has been hospitalized because of symptoms of chest discomfort and shortness of breath. So far, his workup has been fairly benign. He has had history of paroxysmal atrial fibrillation and is chronically anticoagulated on renally adjusted dose of Xarelto. The patient is eager to go home and has had no active cardiac symptoms at this time. The patient is afebrile and his blood pressure is in the 125-130 systolic range. He is saturating at 93% on 2 liters of nasal cannula and has been evaluated by Pulmonary Medicine in the past for that. The patient has heart rate in the 70s and respiratory rate is 18. LABORATORY DATA: Yesterday had revealed a sodium of 135, potassium 4.6 and chloride of 101, his CO2 is 32, his BUN was 28 and his creatinine was 6.1. The patient had normal liver enzymes. His troponins were negative and his high sensitivity troponins were negative. The patient had a BNP of 1790. His lipid profile was adequate except for a triglyceride that was elevated at ____, TSH was normal and amylase and lipase were normal. The patient has been chronically anemic; however,it is of a mile magnitude. His white count of 6.5, his H and H of 10.2 and 29.7 respectively. The MCV is elevated at 106 as is the MCH at 36.4. The patient's platelet count is normal at 146,000. The patient is currently maintained on metoprolol at 50 p.o. daily. He is on hydralazine 50 mg t.i.d. He is on Atrovent, vitamin B complex, rivaroxaban, pantoprazole, clopidogrel, atorvastatin, and p.r.n. medications. This morning, the patient developed what appears to be atrial tachycardia or atrial flutter with varying conduction. His weight is, however, reasonably well controlled and he is on chronic anticoagulation. A Lexiscan Cardiolite was obtained yesterday and revealed no evidence of ischemia or infarction with preserved LV function. I have recommended that we will continue the current conservative management. We will not make any additional cardiac recommendations at this time. The patient should followup with a long-term event monitor and additional assessment by Dr. Beck Sweeney. In the meantime, he will be managed as per the primary care team, Dr. Donna Jacobs conducting his medical care. We would like to thank you for allowing us to participate in the care of this patient. TID: [id number] RECEIPT: [id number]
[2024-08-11 11:44] VITALS: O2SAT 96
[2024-08-11 12:00] VITALS: BP 133/69; PULSE 111; RESP 20; TEMP 97.9
--- NOTE | 2024-08-11 12:54 | NUR ---
PT wasnts to leave AMA This casualty underwriter notified Dr. Gordon that the patient wants to leave AMA. No new orders received. PT signed AMA form and iwill be leaving on his own.
--- NOTE | 2024-08-11 19:28 | DS ---
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 Per nursing report however patient did not wanted to wait for admitting physician to round and left against medical advice. FINAL DISCHARGE DIAGNOSIS: Acute hypoxic respiratory failure requiring oxygen support. Acute on chronic heart failure. End-stage renal disease, on dialysis. Atrial fibrillation on anticoagulation. Peripheral vascular disease. Hypertension. PLAN: Patient left against medical advice. Patient is home O2 dependent. This case was reviewed and discussed with my supervising physician and the above assessment and plan was formulated and agreed upon. HENRIQUE LIMON HEAD SOFT SUGAR OPERATOR Aug 11, 2024 19:28
== END 2024-08-11 13:05 | disposition left against medical advice (07) | DRG 291 ==
LOC: EDH 07:58 → EDHIP 13:48 → 3CH 15:30
PROVIDERS: ADMIT Internal Medicine Infectious Disease; ATTEND Internal Medicine Infectious Disease
PROC: 5A1D70Z Performance of Urinary Filtration, Intermittent, Less than 6 Hours Per Day (ICD-10-PCS; principal; 2024-08-10)
PROC: 4A02XM4 Measurement of Cardiac Total Activity, External Approach (ICD-10-PCS; 2024-08-10)
PROC: 3E073KZ Introduction of Other Diagnostic Substance into Coronary Artery, Percutaneous Approach (ICD-10-PCS; 2024-08-10)
DX: I13.2 Hypertensive heart and chronic kidney disease with heart failure and with stage 5 chronic kidney disease, or end stage renal disease (principal); I50.33 Acute on chronic diastolic (congestive) heart failure; J96.21 Acute and chronic respiratory failure with hypoxia; N18.6 End stage renal disease; E87.1 Hypo-osmolality and hyponatremia; I48.92 Unspecified atrial flutter; I48.19 Other persistent atrial fibrillation; Z20.822 Contact with and (suspected) exposure to COVID-19; D63.1 Anemia in chronic kidney disease; I27.20 Pulmonary hypertension, unspecified; I73.9 Peripheral vascular disease, unspecified; J47.9 Bronchiectasis, uncomplicated; I87.2 Venous insufficiency (chronic) (peripheral); K21.9 Gastro-esophageal reflux disease without esophagitis; I25.10 Atherosclerotic heart disease of native coronary artery without angina pectoris; I95.9 Hypotension, unspecified; R34 Anuria and oliguria; E78.00 Pure hypercholesterolemia, unspecified; F41.9 Anxiety disorder, unspecified; Z53.29 Procedure and treatment not carried out because of patient's decision for other reasons; J45.909 Unspecified asthma, uncomplicated; Z99.2 Dependence on renal dialysis; Z99.81 Dependence on supplemental oxygen; Z79.01 Long term (current) use of anticoagulants; Z82.49 Family history of ischemic heart disease and other diseases of the circulatory system; Z87.891 Personal history of nicotine dependence; Z98.61 Coronary angioplasty status; Z79.899 Other long term (current) drug therapy
CPT/HCPCS: 36415; 71045; 78452; 80048; 82550; 82948; 83735; 83880; 84484; 85025; 85027; 85610; 85730; 86704; 86706; 86803; 87340; 87635; 87804; 90935; 93005; 93017; 94640; 94664; A9500; G0378; J1644; J2785

== ENCOUNTER 2024-09-20 01:02 | Emergency (ER) | payer MEDICARE ==
[~2024-09-20] VITALS: Ht 185.4 cm; Wt 81.6 kg
[~2024-09-20 01:02] MED LIST changes: +AZEL137S11 NS; -CLON0.1T PO; -DRON400T7 PO; -FERS325 PO; +FOLI0.8T22 PO; -FOLI1TAB85 PO; -FURO20TA4 PO; +LORA-997 PO; -METO-391 PO; +METO-408 PO; -METO200T37 PO; +NITR0.4T50 SL
[2024-09-20 01:20] LABS: BASOPHILS # (AUTO) 0.04 K/uL (0.00-0.20); BASOPHILS % (AUTO) 0.4 % (0.0-5.0); IMMATURE GRANULOCYTE ABSOLUTE 0.04 K/uL (0-1); LYMPHOCYTES # (AUTO) 0.8 K/uL (1.0-4.8); LYMPHOCYTES % (AUTO) 7.4 % (21.0-51.0); MEAN CORPUSCULAR HEMOGLOBIN 36.6 pg (27.0-33.0); MEAN CORPUSCULAR HGB CONC 34.1 g/dL (32.0-36.0); MEAN CORPUSCULAR VOLUME 107.3 fL (79-99); MONOCYTES # (AUTO) 0.9 K/uL (0.1-1.0); MONOCYTES % (AUTO) 9.2 % (3.0-13.0); NEUTROPHILS # (AUTO) 8.3 K/uL (1.8-7.7); NEUTROPHILS % (AUTO) 81.6 % (40.0-77.0); PLATELET COUNT (AUTO) 197 K/uL (130-400); RED BLOOD CELL COUNT(AUTO) 3.17 MIL/uL (4.50-6.20); RED CELL DISTRIBUTION WIDTH 14.7 % (11.0-15.5); WHITE BLOOD COUNT (AUTO) 10.1 K/uL (4.8-10.8)
--- NOTE | 2024-09-20 01:29 | ERN ---
General Chief Complaint: Chest Pain Stated Complaint: SUNNY MANCUSO Time Seen by MD: 01:24 History of Present Illness Initial Comments 73-year-old male with history of CHF atrial fibrillation hypertension renal failure and a stomach stent. He comes in with stabbing pain that he describes as being substernal but also superficial at the same time. It occurs with each breath and each heartbeat. In addition he wonders if it CHF. He has no fever no chills no shortness of breath. Only GI symptoms are constipation. He recently had dialysis. He also recently had a nuclear scan on his heart and it was normal. The the stomach stent refers to an extra anatomic fem fem arterial bypass graft Allergies: Coded Allergies: No Known Drug Allergies (Unverified Allergy, Unknown, 04/11/22) Home Meds Reported Medications Nitroglycerin (Nitroglycerin) 0.4 Mg Tab.subl, 1 TAB SL AD for chest pain, #25 TAB 0 Refills 1st sign of attack; may repeat every 5 mins; if pain persists after 3 in 15 min, medical attention is recommended 08/09/24 Folic Acid/Vitamin B Comp W-C (Dorie-Shoshana Tablet) 0.8 Mg Tablet, 1 TAB PO DAILY for 30 Days, #30 TAB 0 Refills 08/09/24 Metoprolol Succinate (Metoprolol Succinate) 25 Mg Tab.er.24h, 2 TAB PO DAILY for 30 Days, #30 TAB 0 Refills 08/09/24 Loratadine (Allergy Relief) 10 Mg Tablet, 1 TAB PO DAILY for 30 Days, #30 TAB 0 Refills 08/09/24 Azelastine HCl (Azelastine HCl) 137 Mcg (0.1 %) [place].pump, 1 SPRAY NS BID for 30 Days, #30 ML 0 Refills 08/09/24 Alprazolam (Alprazolam) 0.25 Mg Tablet, 0.25 MG PO AD PRN for ANXIETY, TAB 01/30/23 Mv-Mn/Iron/FA/Herbal Cmplx#190 (Vitamin D3 Complete Caplet) 18 Mg Iron-800 Mcg- 150 Mg Tablet, 1 EACH PO DAILY, TAB 04/11/22 [Vitamin B12] No Conflict Check, 1000 MCG PO DAILY 04/11/22 Buspirone HCl (Buspirone HCl) 10 Mg Tablet, 10 MG PO BID, TAB 04/11/22 Rivaroxaban (Xarelto) 15 Mg Tablet, 15 MG PO DAILY, TAB 04/11/22 Hydralazine HCl (Hydralazine HCl) 50 Mg Tablet, 50 MG PO TID PRN for <PGV625 (LESS THAN 160), TAB 04/11/22 Clopidogrel Bisulfate (Clopidogrel) 75 Mg Tablet, 75 MG PO DAILY, TAB 12/02/18 Pantoprazole Sodium (Pantoprazole Sodium) 40 Mg Tablet.dr, 40 MG PO DAILY, TAB 01/15/17 Atorvastatin Calcium (Atorvastatin Calcium) 20 Mg Tablet, 20 MG PO HS, TAB 01/15/17 Past Medical History Past Medical History: A-Fib, CHF, High Cholesterol, Heart Disease, Hypertension, Renal Failure Past Surgical History: Other, LAVA Surgical History Other: STOMACH STENT Family History Family History: HTN Social History Social History: Negative, Lives with family, Other Constitutional: (-) chills, (-) diaphoresis, (-) fever, (-) malaise, (-) weakness, (-) other documentation EENTM: (-) eye pain, (-) blurred vision, (-) tearing, (-) double vision, (-) ear pain, (-) ear discharge, (-) nose pain, (-) nose congestion, (-) throat pain, (-) Throat swelling, (-) mouth pain, (-) tooth pain, (-) mouth swelling, (-) other documentation Respiratory: (-) cough, (-) orthopnea, (-) short of breath, (-) stridor, (-) wheezing, (-) other documentation Cardiovascular: (+) chest pain Gastrointestinal/Abdominal: (-) nausea, (-) vomiting, (-) diarrhea, (-) abdominal pain, (-) abdominal distention, (-) constipation, (-) rectal bleeding, (-) dark stool/melena, (-) other documentation Musculoskeletal: (-) Neck pain, (-) back pain, (-) Flank Pain, (-) joint pain, (-) joint swelling, (-) muscle pain, (-) muscle stiffness, (-) gout, (-) other documentation Skin: (-) laceration, (-) contusion, (-) abrasion, (-) abscess, (-) rash, (-) change in color, (-) change in hair, (-) change in nails, (-) diaphoresis, (-) dryness, (-) other documentation Physical Exam General Appearance: (+) moderate distress Orientation: (+) oriented x 3 Head/Face Trauma: No Eye: bilateral eye normal inspection, bilateral eye PERRL, bilateral eye EOMI Ear, Nose, Throat: (+) hearing grossly normal, (+) normal ENT inspection, (+) moist mucous membraine Neck: (+) normal inspection, (+) supple, (+) full range of motion Respiratory Comment Patient does have left-sided chest wall tenderness and sternal tenderness and subxiphoid tenderness. Heart: (+) regular, (+) no gallop Vascular: (+) no edema, (+) normal peripheral pulse Gastrointestinal: (+) soft, (+) non-tender, (+) bowel sound present Extremities: (+) normal range of motion, (+) non-tender, (+) normal inspection Results Laboratory and Microbiology Lab and Micro Result Laboratory Tests Test 09/20/24 01:11 White Blood Count 10.1 K/uL (4.8-10.8) Red Blood Count 3.17 MIL/uL (4.50-6.20) L Hemoglobin 11.6 g/dL (14.0-18.0) L Hematocrit 34.0 % (42-54) L Mean Corpuscular Volume 107.3 fL (79-99) H Mean Corpuscular Hemoglobin 36.6 pg (27.0-33.0) H Mean Corpuscular Hemoglobin Concent 34.1 g/dL (32.0-36.0) Red Cell Distribution Width 14.7 % (11.0-15.5) Platelet Count 197 K/uL (130-400) Mean Platelet Volume 9.6 fL (7.5-10.5) Immature Granulocyte % (Auto) 0.4 % (0-1) Neutrophils (%) (Auto) 81.6 % (40.0-77.0) H Lymphocytes (%) (Auto) 7.4 % (21.0-51.0) L Monocytes (%) (Auto) 9.2 % (3.0-13.0) Eosinophils (%) (Auto) 1.0 % (0.0-8.0) Basophils (%) (Auto) 0.4 % (0.0-5.0) Neutrophils # (Auto) 8.3 K/uL (1.8-7.7) H Lymphocytes # (Auto) 0.8 K/uL (1.0-4.8) L Monocytes # (Auto) 0.9 K/uL (0.1-1.0) Eosinophils # (Auto) 0.10 K/uL (0.00-0.70) Basophils # (Auto) 0.04 K/uL (0.00-0.20) Absolute Immature Granulocyte (auto 0.04 K/uL (0-1) Nucleated Red Blood Cells 0.0 % (0.0-0.19) White Cell Morphology Comment See comments Red Blood Cell Morphology See comments Sodium Level 137 mmol/L (136-145) Potassium Level 4.5 mmol/L (3.5-5.1) Chloride Level 97 mmol/L (101-111) L Carbon Dioxide Level 31 mmol/L (21-32) Blood Urea Nitrogen 34 mg/dL (7-18) H Creatinine 7.9 mg/dL (0.5-1.3) H Glomerular Filtration Rate Calc 7 mL/min (>90) Random Glucose 109 mg/dL (70-105) H Total Calcium 8.9 mg/dL (8.5-10.1) Total Creatine Kinase 28 U/L (21-232) # Troponin I High Sensitivity 15 ng/L (4-75) B-Type Natriuretic Peptide 512 pg/mL (0-100) H MDM Given patient's past medical history and renal failure the cause of his pain is is not obvious. I will do a standard cardiac workup. I will give him some pain medicine as well as a standard GI cocktail. I will have to check his electrolytes and a chest x-ray as well. I will defer CT scan for now. The patient received 1 mg of Dilaudid in his pain immediately resolved. The GI cocktail had no effect on his pain. CBC shows a mild microcytic anemia. Chemistry panel does show mild hypo kalemia and a BUN and creatinine consistent with end-stage renal disease. Cardiac enzymes are negative EKG was negative. Chest x-ray showed a lot of fibrosis and therefore I obtained a CT scan of his chest which showed the followin) chronic changes consistent with COPD or fibrosis. 2) large effusion on the right side with compressive atelectasis in the right lower lung base 3) pericardial effusion. 4) calcifications in the right lower lobe. Patient has dialysis in the morning I will discharge him from the ED to go to his dialysis session he will also go to see a new duty officer tomorrow. I will make sure that a copy of this note is given to the patient so the duty officer can read it and obtain the images from medical records. ED Course Orders Procedure Category Date Status Time Vital Signs Per CPOE 09/20/24 Transmitted Routine 01:04 B-Type Natriuretic LAB 09/20/24 Complete Peptide 01:04 Chest 1vw RAD 09/20/24 Taken 01:04 12 Lead Ekg Tracing- EKG 09/20/24 Logged Technical 01:04 Oxygen By Nc/Pulse Ox CPOE 09/20/24 Transmitted 01:04 Maintain Iv CPOE 09/20/24 Transmitted 01:04 Iv Insertion CPOE 09/20/24 Transmitted 01:04 Cardiac Monitoring CPOE 09/20/24 Transmitted 01:04 Pulse Oximetry With CPOE 09/20/24 Transmitted Vs And Prn 01:04 Cbc With Differential LAB 09/20/24 Complete 01:04 Activity: Br W/Brp CPOE 09/20/24 Transmitted With Assist 01:04 Creatine Kinase, Total LAB 09/20/24 Complete 01:04 Troponin I High LAB 09/20/24 Complete Sensitivity 01:04 Urinalysis Profile LAB 09/20/24 Logged 01:04 Basic Metabolic Panel LAB 09/20/24 Complete 01:04 Lidocaine Hcl 2% PHA 09/20/24 Complete Viscous (Lidocaine Hcl 01:30 Mag/Alum/Simeth 30ml PHA 09/20/24 Complete (Maalox Plus 30ml) 01:30 Dicyclomine Hcl PHA 09/20/24 Complete (Bentyl 10mg/5ml 01:30 Hydromorphone 2mg PHA 09/20/24 Complete Vial (Dilaudid 2mg Inj 02:00 Ct Chest Pe Protocol CT 09/20/24 Taken Wwo Cont 02:31 Iohexol (Omnipaque) PHA 09/20/24 Complete 02:57 Current Medications Medications (Trade) Dose Ordered Sig/Felecia Route PRN Reason Start Time Stop Time Status Last Admin Dose Admin Al Hydroxide/Mg Hydroxide (MAALox PLUS 30ML) 30 ml ONCE ONCE PO 09/20/24 01:30 09/20/24 01:35 DC 09/20/24 01:44 Dicyclomine HCl (Bentyl 10mg/5ml Syrup) 10 mg ONCE ONCE PO 09/20/24 01:30 09/20/24 01:35 DC 09/20/24 01:44 Hydromorphone HCl (DiLAUDid 2MG INJ) 2 mg ONCE ONCE IVP 09/20/24 02:00 09/20/24 02:01 DC 09/20/24 02:05 Iohexol (Omnipaque) 35,000 mg STK-MED ONCE IV 09/20/24 02:57 09/20/24 02:57 DC Lidocaine HCl (Lidocaine HCl 2% Viscous) 10 ml ONCE ONCE PO 09/20/24 01:30 09/20/24 01:35 DC 09/20/24 01:44 Vital Signs Date Time Temp Pulse Resp B/P (MAP) Pulse Ox O2 Delivery O2 Flow Rate FiO2 09/20/24 02:59 68 16 117/53 94 Nasal Cannula* 2 28 09/20/24 02:00 76 26 129/83 98 Nasal Cannula* 4 36 09/20/24 01:15 99.0 77 28 143/87 98 Nasal Cannula* 3 32 09/20/24 01:03 98.8 81 20 129/56 86 Room Air DX & DISP Disposition: Discharge Departure Impression: Primary Impression: Pulmonary effusion Additional Impressions: Pulmonary fibrosis, Pericardial effusion, COPD (chronic obstructive pulmonary disease), End-stage renal disease needing dialysis Condition: Stable Scripts Oxycodone HCl (Oxycodone HCl) 10 Mg Tablet 1 TAB PO QIDP PRN for pain for 5 Days, #20 TAB 0 Refills Prov: SHADE VELAZQUEZ MD 09/20/24 Additional Instructions: Please go to dialysis today and see your duty officer for your follow-up appointment today. You have a pericardial effusion, a large right-sided pulmonary effusion, COPD with emphysematous changes, calcifications in the base of your right lung. Referrals: PHILIP HANLEY MD (PCP) SHADE VELAZQUEZ MD September 20, 2024 01:29
[2024-09-20 01:33] LABS: CREATININE 7.9 mg/dL (0.5-1.3); POTASSIUM 4.5 mmol/L (3.5-5.1)
[2024-09-20] MEDS: DICYCLOMINE HCL 10 MG/5 ML ML PO ONE (01:44)
[2024-09-20] MEDS: LIDOCAINE HCL 2% VISCOUS 15 ML UDCUP PO ONE (01:44)
[2024-09-20] MEDS: MAG/ALUM/SIMETH 30 ML UDCUP PO ONE (01:44)
[2024-09-20] MEDS: hydroMORPHone 2 MG VIAL (2MG/ML) IVP ONE (02:05)
[2024-09-20 02:11] LABS: B-TYPE NATRIURETIC PEPTIDE 512 pg/mL (0-100)
[2024-09-20] MEDS ORDERED: IOHEXOL 350 MG/ML 100ML INFUS..BTL IV ONE (02:57)
[2024-09-20] MEDS ORDERED: OXYC10TA48 PO (04:26)
[2024-09-20 04:37] VITALS: BP 132/57; PULSE 65; RESP 16; TEMP 98.7; O2SAT 93
--- NOTE | 2024-09-20 06:30 | EKG ---
[facility] Test Date: 2024-09-20 Test Time: 01:03:23 Pat Name: ARLIN BENTON Department: ED Room: Gender: M Qualifications Examiner: [id number] : 1950 Requested By: DIA PATTEN Order Number: [id number] Reading MD: Katalina Gaston Measurements Intervals [place] Rate: 82 P: 21 SD: 191 QRS: 0 QRSD: 98 T: 61 QT: 403 QTc: 470 Interpretive Statements Sinus rhythm Compared to ECG 08/10/2024 12:51:29 Prolonged QT interval no longer present Electronically Signed On 09-20-2024 14:23:51 CDT by Katalina Gaston Please click the below link to view image of tracing.
--- NOTE | 2024-09-20 08:18 | HMCIMG ---
CT angiogram chest CLINICAL INDICATION: chest pain with breathing COMPARISON: None. CT Dose Index (CTDI): 113.50 mGy Dose Length Product (DLP): 1408.10 total mGy PROTOCOL: Contrast: 100 cc of Isovue-370, injected IV, no complications Examination is done at 2.5 millimeter volumetric acquisition after contrast administration. Photography is done at 5 millimeter thick intervals for the thorax. FINDINGS: There is no evidence of pulmonary embolism. The airway is intact. The trachea and major bronchi are unremarkable. No pulmonary infiltrates or mass lesions are seen. Centrilobular emphysema. Moderate to large right pleural effusion with adjacent passive atelectasis. The exam of the sanjiv and mediastinum is unremarkable. No evidence of hilar enlargement is seen. The aorta shows no aneurysmal dilatation or significant atheromatous calcification. There is no thoracic aortic dissection. No significant brachiocephalic vascular abnormalities are seen. The heart is unremarkable. It is not enlarged. No significant coronary arterial calcifications are seen. There is no pericardial effusion. The rib cage appears unremarkable. The soft tissues of the chest wall are unremarkable. The dorsal spine shows no significant abnormalities. Limited evaluation of the upper abdomen demonstrates no gross abnormalities. IMPRESSION: No evidence of pulmonary embolism. COPD. Moderate to large right pleural effusion with adjacent passive atelectasis. This study was performed using dose reduction techniques to include automated exposure control and/or adjustment of the mA and/or kV according to patient size.
--- NOTE | 2024-09-20 09:10 | HMCIMG ---
Exam Type: CHEST 1VW Clinical Information: CHEST PAIN Comparison: None Findings: Pulmonary pattern is as before. No worrisome interval changes have taken place. Impression: Stable exam.
== END 2024-09-20 04:39 | disposition home or self-care (01) ==
LOC: EDH 01:02
DX: I13.2 Hypertensive heart and chronic kidney disease with heart failure and with stage 5 chronic kidney disease, or end stage renal disease (principal); N18.6 End stage renal disease; J98.4 Other disorders of lung; J84.10 Pulmonary fibrosis, unspecified; I31.39 Other pericardial effusion (noninflammatory); J44.9 Chronic obstructive pulmonary disease, unspecified; I12.0 Hypertensive chronic kidney disease with stage 5 chronic kidney disease or end stage renal disease; I11.0 Hypertensive heart disease with heart failure; I50.9 Heart failure, unspecified; E78.00 Pure hypercholesterolemia, unspecified; I48.91 Unspecified atrial fibrillation; Z79.01 Long term (current) use of anticoagulants; Z79.02 Long term (current) use of antithrombotics/antiplatelets; Z79.899 Other long term (current) drug therapy; Z99.2 Dependence on renal dialysis
CPT/HCPCS: 99285; 96374; 71270; 71045; 82550; 84484; 80048; 83880; 85025; 36415; 93005; J1171; Q9967